=== PATIENT | female | born 1985 | race African-American/Black ===

== ENCOUNTER 2020-10-23 00:21 | Inpatient (IN) | payer OTHER ==
[~2020-10-23] VITALS: Ht 149.9 cm; Wt 75.0 kg
[~2020-10-23 00:21] MED LIST: ACET250T3 PO; ALBU18HF2 IH; ASPI-1153 PO; BACL-141 PO; BUPR150T9 PO; CYAN100081 PO; CYCL10TA7; DIVA-73 PO; DOCU-138 PO; DOCU240C PO; FERR-63 PO; GABA-532 PO; HYDR-459 PO; IBUP-2030 PO; LORA-250 PO; MECL-184 PO; METO-293 PO; METO25TA6 PO; ONDA4TAB51 PO; OXYB5TAB16 PO; RISP0.5T65 PO; SENN8.6T21 PO; SUCR1TAB PO; TOPI50TA; TRAM100T34 PO
[2020-10-23] MEDS ORDERED: DIPHENHYDRAMINE 12.5MG/5ML UDC PO ONE (01:00)
[2020-10-23 01:03] LABS: BASOPHILS % 0.5 % (0.0-2.0); EOSINOPHILS % 0.8 % (0.0-5.0); HEMATOCRIT. 37.4 % (36.0-48.0); HEMOGLOBIN. 12.5 g/dL (12.0-16.0); LYMPHOCYTES % 45.7 % (20.0-50.0); MEAN CORPUSCULAR VOLUME 89.6 fL (81.0-99.0); MEAN PLATELET VOLUME 9.2 fl (7.4-10.4); MONOCYTES % 9.2 % (2.0-8.0); NEUTROPHILS % 43.8 % (40.0-76.0); PLATELET 211 x1000/uL (130-400); RED BLOOD CELL COUNT 4.17 mill/uL (4.2-5.4); RED CELL DISTRIBUTION WIDTH 13.9 % (11.6-14.6)
[2020-10-23 01:09] LABS: CHLORIDE 109 mEq/L (98-107)
[2020-10-23 01:14] LABS: ETHANOL BLOOD < 10 mg/dL
[2020-10-23] MEDS: RISPERIDONE 1MG TABLET PO SCH ×2 (04:50→09:46)
[2020-10-23 05:31] LABS: CLARITY URINE CLEAR (CLEAR); COLOR URINE YELLOW (YELLOW); KETONES URINE NEGATIVE (NEGATIVE); LEUKOCYTE ESTERASE URINE 2+ (NEGATIVE); NITRITE URINE NEGATIVE (NEGATIVE); OCCULT BLOOD URINE NEGATIVE (NEGATIVE); PROTEIN URINE NEGATIVE (NEGATIVE); SPECIFIC GRAVITY URINE 1.018 (1.005-1.030)
[2020-10-23 05:40] LABS: *AMPHETAMINES SCREEN URINE NEGATIVE (NEGATIVE); *BARBITURATES SCREEN URINE NEGATIVE (NEGATIVE); CANNABINOID URINE SCREEN NEGATIVE (NEGATIVE); PHENCYCLIDINE URINE SCREEN NEGATIVE (NEGATIVE)
[2020-10-23 05:41] LABS: *BENZODIAZEPINES SCREEN URINE NEGATIVE (NEGATIVE); *COCAINE SCREEN URINE NEGATIVE (NEGATIVE); METHADONE URINE SCREEN NEGATIVE (NEGATIVE); OPIATES URINE SCREEN NEGATIVE (NEGATIVE)
[2020-10-23] MEDS ORDERED: CYCLOBENZAPRINE 10MG TABLET PO ONE (21:30)
[2020-10-23] MEDS: GABAPENTIN 300MG CAPSULE PO SCH (21:49)
[2020-10-24] MEDS: GABAPENTIN 300MG CAPSULE PO SCH ×3 (06:06→21:45)
[2020-10-24] MEDS: OXCARBAZEPINE 300MG TABLET PO SCH (09:15)
[2020-10-24] MEDS: RISPERIDONE 1MG TABLET PO SCH (09:20)
[2020-10-24] MEDS: ATORVASTATIN CALCIUM 40MG TABLET PO SCH (21:45)
[2020-10-24] MEDS: TRAZODONE HCL 50MG TABLET PO SCH (21:45)
[2020-10-25] MEDS: GABAPENTIN 300MG CAPSULE PO SCH ×3 (06:18→22:18)
[2020-10-25] MEDS: RISPERIDONE 1MG TABLET PO SCH (08:17)
[2020-10-25] MEDS: OXCARBAZEPINE 300MG TABLET PO SCH (08:17)
[2020-10-25] MEDS ORDERED: ACETAMINOPHEN 325MG TABLET PO STA (11:10)
[2020-10-25] MEDS ORDERED: NITR-87 MT (16:40)
[2020-10-25] MEDS: TRAZODONE HCL 50MG TABLET PO SCH (22:18)
[2020-10-25] MEDS: ATORVASTATIN CALCIUM 40MG TABLET PO SCH (22:18)
[2020-10-26] MEDS: GABAPENTIN 300MG CAPSULE PO SCH ×3 (06:00→21:17)
[2020-10-26] MEDS: OXCARBAZEPINE 300MG TABLET PO SCH (08:00)
[2020-10-26] MEDS: RISPERIDONE 1MG TABLET PO SCH (09:00)
[2020-10-26] MEDS ORDERED: ACETAMINOPHEN 325MG TABLET PO NR (11:15)
[2020-10-26] MEDS ORDERED: DIPHENHYDRAMINE 25MG CAPSULE PO ONE (16:15)
[2020-10-26] MEDS: TRAZODONE HCL 50MG TABLET PO SCH (21:47)
[2020-10-26] MEDS: ATORVASTATIN CALCIUM 40MG TABLET PO SCH (21:47)
[2020-10-27] MEDS ORDERED: DIPHENHYDRAMINE 25MG CAPSULE PO ONE (04:00)
[2020-10-27] MEDS: GABAPENTIN 300MG CAPSULE PO SCH ×2 (07:57→14:00)
[2020-10-27] MEDS: RISPERIDONE 1MG TABLET PO SCH (09:00)
[2020-10-27] MEDS: OXCARBAZEPINE 300MG TABLET PO SCH (09:00)
[2020-10-27] MEDS ORDERED: ONDANSETRON HCL 4MG/2ML INJ IV PRN (15:00)
[2020-10-27] MEDS ORDERED: ACETAMINOPHEN 325MG TABLET PO PRN (15:00)
[2020-10-27] MEDS ORDERED: AZITHROMYCIN 500 MG TABLET PO NR (15:00)
[2020-10-27] MEDS ORDERED: CEFTRIAXONE 1 G PREMIX 50 ML IV SCH (15:00)
[2020-10-27 16:44] VITALS: BP 126/92
[2020-10-27] MEDS ORDERED: DIPHENHYDRAMINE 25MG CAPSULE PO PRN (17:30)
[2020-10-27] MEDS ORDERED: IBUPROFEN 800MG TABLET PO SCH (18:00)
[2020-10-27] MEDS ORDERED: MECLIZINE 12.5MG TABLET PO SCH (18:00)
[2020-10-27] MEDS ORDERED: IBUPROFEN 800MG TABLET PO PRN (19:15)
[2020-10-27] MEDS ORDERED: MECLIZINE 25MG TABLET PO PRN (19:15)
[2020-10-27] MEDS: DIPHENHYDRAMINE 25MG CAPSULE PO PRN (19:52)
[2020-10-27 20:00] VITALS: BP 123/83
[2020-10-27] MEDS: DIVALPROEX SODIUM 500MG ER TABLET PO SCH (20:44)
[2020-10-27] MEDS: ENOXAPARIN 40MG/0.4ML SYR SUBCUT SCH (20:44)
[2020-10-27] MEDS: PHENYTOIN SODIUM EXTENDED 100MG CAPSULE PO SCH (20:45)
[2020-10-27] MEDS: RISPERIDONE 0.5MG TABLET PO SCH (20:45)
[2020-10-27] MEDS: LEVETIRACETAM 500MG TABLET PO SCH (20:46)
[2020-10-27] MEDS: LORAZEPAM 1MG TABLET PO PRN (21:03)
[2020-10-28] VITALS: BP 120/70
[2020-10-28] MEDS: SODIUM CHLORIDE 0.45% 1,000 ML IV SCH ×2 (03:32→04:27)
[2020-10-28 04:00] VITALS: BP 119/72
[2020-10-28] MEDS: DIVALPROEX SODIUM 500MG ER TABLET PO SCH ×2 (08:58→17:16)
[2020-10-28] MEDS: LEVETIRACETAM 500MG TABLET PO SCH ×2 (08:58→20:55)
[2020-10-28] MEDS: OXCARBAZEPINE 300MG TABLET PO SCH (08:59)
[2020-10-28] MEDS: LORAZEPAM 1MG TABLET PO PRN (08:59)
[2020-10-28] MEDS: FERROUS SULFATE 325MG TABLET PO SCH ×2 (08:59→17:16)
[2020-10-28] MEDS: CYCLOBENZAPRINE 10MG TABLET PO PRN ×2 (08:59→17:16)
[2020-10-28] MEDS: RISPERIDONE 0.5MG TABLET PO SCH ×2 (09:00→17:16)
[2020-10-28] MEDS: AZITHROMYCIN 250 MG TABLET PO SCH (09:00)
[2020-10-28] MEDS: ACETAZOLAMIDE 250MG TABLET PO SCH ×3 (09:00→17:16)
[2020-10-28] MEDS ORDERED: CYCLOBENZAPRINE 10MG TABLET PO SCH (09:00)
[2020-10-28] MEDS: GABAPENTIN 300MG CAPSULE PO SCH ×3 (09:02→17:20)
[2020-10-28] MEDS: DIPHENHYDRAMINE 25MG CAPSULE PO PRN ×2 (09:03→15:21)
[2020-10-28 12:00] VITALS: BP 98/69
[2020-10-28 16:00] VITALS: BP 108/60
[2020-10-28] MEDS: CEFTRIAXONE 1,000 MG in DEXTROSE 5% WATER 50 ML IV SCH ×2 (17:17→17:21)
[2020-10-28] MEDS: HYDROXYZINE 25MG TABLET PO PRN (17:17)
[2020-10-28 20:00] VITALS: BP 120/80
[2020-10-28] MEDS: PHENYTOIN SODIUM EXTENDED 100MG CAPSULE PO SCH (20:54)
[2020-10-28] MEDS: ENOXAPARIN 40MG/0.4ML SYR SUBCUT SCH (20:55)
[2020-10-29] VITALS: BP 123/71
[2020-10-29] MEDS: HYDROXYZINE 25MG TABLET PO PRN ×3 (00:38→20:57)
[2020-10-29] MEDS: LORAZEPAM 1MG TABLET PO PRN ×2 (00:54→12:04)
[2020-10-29] MEDS: SODIUM CHLORIDE 0.45% 1,000 ML IV SCH ×3 (05:27→20:58)
[2020-10-29 08:00] VITALS: BP 110/68
[2020-10-29] MEDS: AZITHROMYCIN 250 MG TABLET PO SCH (08:10)
[2020-10-29] MEDS: FERROUS SULFATE 325MG TABLET PO SCH ×2 (08:10→17:30)
[2020-10-29] MEDS: OXCARBAZEPINE 300MG TABLET PO SCH (08:10)
[2020-10-29] MEDS: ACETAZOLAMIDE 250MG TABLET PO SCH ×3 (08:10→17:30)
[2020-10-29] MEDS: GABAPENTIN 300MG CAPSULE PO SCH ×3 (08:10→17:30)
[2020-10-29] MEDS: RISPERIDONE 0.5MG TABLET PO SCH ×2 (08:10→17:30)
[2020-10-29] MEDS: LEVETIRACETAM 500MG TABLET PO SCH ×2 (08:10→20:57)
[2020-10-29] MEDS: DIVALPROEX SODIUM 500MG ER TABLET PO SCH ×2 (08:10→17:31)
[2020-10-29 12:00] VITALS: BP 122/82
[2020-10-29 16:00] VITALS: BP 100/55
[2020-10-29] MEDS: CEFTRIAXONE 1,000 MG in DEXTROSE 5% WATER 50 ML IV SCH (17:30)
[2020-10-29 20:36] VITALS: BP 123/77
[2020-10-29] MEDS: ENOXAPARIN 40MG/0.4ML SYR SUBCUT SCH (20:57)
[2020-10-29] MEDS: PHENYTOIN SODIUM EXTENDED 100MG CAPSULE PO SCH (20:57)
[2020-10-30] VITALS: BP 118/75
[2020-10-30 04:00] VITALS: BP 125/80
[2020-10-30 08:00] VITALS: BP 106/62
[2020-10-30] MEDS: OXCARBAZEPINE 300MG TABLET PO SCH (08:09)
[2020-10-30] MEDS: FERROUS SULFATE 325MG TABLET PO SCH (08:09)
[2020-10-30] MEDS: RISPERIDONE 0.5MG TABLET PO SCH (08:09)
[2020-10-30] MEDS: ACETAZOLAMIDE 250MG TABLET PO SCH ×2 (08:09→12:12)
[2020-10-30] MEDS: DIVALPROEX SODIUM 500MG ER TABLET PO SCH (08:09)
[2020-10-30] MEDS: LEVETIRACETAM 500MG TABLET PO SCH (08:09)
[2020-10-30] MEDS: AZITHROMYCIN 250 MG TABLET PO SCH (08:09)
[2020-10-30] MEDS: SODIUM CHLORIDE 0.45% 1,000 ML IV SCH (08:10)
[2020-10-30] MEDS: GABAPENTIN 300MG CAPSULE PO SCH ×2 (08:11→12:12)
[2020-10-30 12:00] VITALS: BP 110/67
[2020-10-30] MEDS: LORAZEPAM 1MG TABLET PO PRN (12:12)
[2020-10-30 12:49] VITALS: BP 110/67
== END 2020-10-30 15:07 | DRG 720 ==
LOC: ER 00:21 → EDUNIT# 00:21 → EDBD 00:21 → UNDOADMIN 10-26 00:20 → MICUSO 10-26 00:20 → EDBEDREQTM 10-27 12:40 → EDBEDREQ 10-27 12:40 → ENRESERV 10-27 13:48 → 7WST 10-27 16:18
PROVIDERS: ADMIT Internal Medicine; ATTEND Internal Medicine
DX: A41.9 Sepsis, unspecified organism (principal); U07.1 COVID-19; E44.0 Moderate protein-calorie malnutrition; E87.8 Other disorders of electrolyte and fluid balance, not elsewhere classified; F20.9 Schizophrenia, unspecified; F31.9 Bipolar disorder, unspecified; G40.909 Epilepsy, unspecified, not intractable, without status epilepticus; N39.0 Urinary tract infection, site not specified; R45.851 Suicidal ideations; Z88.5 Allergy status to narcotic agent; Z88.0 Allergy status to penicillin; Z88.2 Allergy status to sulfonamides; Z88.8 Allergy status to other drugs, medicaments and biological substances; Z88.1 Allergy status to other antibiotic agents; Z91.040 Latex allergy status; Z79.1 Long term (current) use of non-steroidal anti-inflammatories (NSAID); Z79.82 Long term (current) use of aspirin; Z79.899 Other long term (current) drug therapy; Z68.33 Body mass index [BMI] 33.0-33.9, adult; R62.50 Unspecified lack of expected normal physiological development in childhood
CPT/HCPCS: 36415; 71045; 80053; 80305; 80307; 80320; 80329; 81003; 81025; 85025; 87077; 93005; 99285; C9803; J0696; J1650; J2405; J7060; Q0163; U0003; G0480

== ENCOUNTER 2020-12-19 11:26 | Inpatient (IN) | payer MEDICAID, OTHER ==
[~2020-12-19] VITALS: Ht 149.9 cm; Wt 80.3 kg
[~2020-12-19 11:26] MED LIST changes: -MECL-184 PO; +MECL-217 PO; +NITR-87 MT
[2020-12-19 12:30] LABS: BASOPHILS % 1.1 % (0.0-2.0); EOSINOPHILS % 2.3 % (0.0-5.0); HEMATOCRIT. 42.8 % (36.0-48.0); HEMOGLOBIN. 14.1 g/dL (12.0-16.0); LYMPHOCYTES % 40.9 % (20.0-50.0); MEAN CORPUSCULAR HEMOGLOBIN 30.9 pg (28.0-32.0); MEAN CORPUSCULAR VOLUME 93.6 fL (81.0-99.0); MEAN PLATELET VOLUME 9.5 fl (7.4-10.4); MONOCYTES % 12.2 % (2.0-8.0); NEUTROPHILS % 43.5 % (40.0-76.0); PLATELET 178 x1000/uL (130-400); RED BLOOD CELL COUNT 4.57 mill/uL (4.2-5.4); RED CELL DISTRIBUTION WIDTH 13.7 % (11.6-14.6)
[2020-12-19 12:36] LABS: CHLORIDE 112 mEq/L (98-107)
[2020-12-19 12:59] LABS: HCG SCREEN NEGATIVE
[2020-12-19] MEDS ORDERED: METOCLOPRAMIDE HCL 10MG/2ML VIAL IV ONE (13:00)
[2020-12-19] MEDS ORDERED: ACETAMINOPHEN 650MG/20.3ML UDC PO NR (13:00)
[2020-12-19] MEDS ORDERED: METOCLOPRAMIDE HCL 10 MG in SODIUM CHLORIDE 0.9% 100 ML IV SCH (13:15)
[2020-12-19 13:57] LABS: CLARITY URINE TURBID (CLEAR); COLOR URINE YELLOW (YELLOW); KETONES URINE NEGATIVE (NEGATIVE); LEUKOCYTE ESTERASE URINE 3+ (NEGATIVE); NITRITE URINE NEGATIVE (NEGATIVE); OCCULT BLOOD URINE 2+ (NEGATIVE); PH URINE 8.5 (4.5-8.0); PROTEIN URINE 1+ (NEGATIVE); SPECIFIC GRAVITY URINE 1.013 (1.005-1.030)
[2020-12-19] MEDS ORDERED: NITR-87 MT (14:11)
[2020-12-19] MEDS ORDERED: MORPHINE SULFATE 4 MG/ML CPJ (NOT FOR IM USE) IV ONE ×2 (14:15→20:00)
[2020-12-19] MEDS ORDERED: NITROFURANTOIN 100MG M/M CAPSULE PO ONE (14:15)
[2020-12-19] MEDS ORDERED: DIPHENHYDRAMINE 25MG CAPSULE PO NR (20:15)
[2020-12-19] MEDS ORDERED: LEVETIRACETAM 500MG TABLET PO NR (21:00)
[2020-12-19] MEDS ORDERED: DIVALPROEX SODIUM 500MG DR TABLET PO NR (21:15)
[2020-12-20 01:10] VITALS: BP 113/69
[2020-12-20 01:25] VITALS: BP 113/69
[2020-12-20] MEDS ORDERED: MECLIZINE 25MG TABLET PO PRN (02:45)
[2020-12-20] MEDS ORDERED: DIPHENHYDRAMINE 50MG CAPSULE PO PRN (02:45)
[2020-12-20] MEDS: MORPHINE SULFATE 2 MG/ML CPJ (NOT FOR IM USE) IV PRN ×2 (03:03→08:37)
[2020-12-20] MEDS ORDERED: PHEN100C4 PO (03:53)
[2020-12-20] MEDS ORDERED: DIVA-75 PO (04:01)
[2020-12-20] MEDS ORDERED: FERR325T6 PO (04:01)
[2020-12-20] MEDS ORDERED: LEVE10006 PO (04:01)
[2020-12-20] MEDS ORDERED: OXCA300T4 PO (04:01)
[2020-12-20] MEDS ORDERED: LIDO700A30 TP (04:09)
[2020-12-20] MEDS ORDERED: ASCO-339 MT (04:09)
[2020-12-20 08:00] VITALS: BP_SYST 107; BP_SYST 86; BP_DIAS 57; BP_DIAS 67
[2020-12-20 08:02] LABS: BASOPHILS % 0.5 % (0.0-2.0); EOSINOPHILS % 4.1 % (0.0-5.0); HEMATOCRIT. 38.6 % (36.0-48.0); HEMOGLOBIN. 12.7 g/dL (12.0-16.0); LYMPHOCYTES % 57.9 % (20.0-50.0); MEAN CORPUSCULAR HEMOGLOBIN 31.1 pg (28.0-32.0); MEAN CORPUSCULAR VOLUME 94.6 fL (81.0-99.0); MEAN PLATELET VOLUME 9.7 fl (7.4-10.4); NEUTROPHILS % 26.5 % (40.0-76.0); PLATELET 152 x1000/uL (130-400); RED BLOOD CELL COUNT 4.08 mill/uL (4.2-5.4); RED CELL DISTRIBUTION WIDTH 13.8 % (11.6-14.6)
[2020-12-20 08:26] LABS: CHLORIDE 114 mEq/L (98-107)
[2020-12-20] MEDS: LEVETIRACETAM 500MG/5ML CUP PO SCH ×2 (08:34→21:18)
[2020-12-20] MEDS: DIVALPROEX SODIUM 500MG DR TABLET PO SCH ×2 (08:35→17:33)
[2020-12-20] MEDS: OXCARBAZEPINE 300MG TABLET PO SCH (08:35)
[2020-12-20] MEDS: ACETAZOLAMIDE 250MG TABLET PO SCH ×3 (08:35→17:32)
[2020-12-20 08:36] LABS: LDL CHOLESTEROL 85 mg/dL (5-100)
[2020-12-20] MEDS: FERROUS SULFATE 325MG TABLET PO SCH ×2 (08:36→17:32)
[2020-12-20] MEDS: GABAPENTIN 300MG CAPSULE PO SCH ×4 (08:36→21:19)
[2020-12-20] MEDS: RISPERIDONE 0.5MG TABLET PO SCH ×2 (08:36→17:32)
[2020-12-20 08:38] LABS: HDL CHOLESTEROL 83 mg/dL (40-59)
[2020-12-20 12:00] VITALS: BP 116/69
[2020-12-20] MEDS: CEFTRIAXONE 1,000 MG in DEXTROSE 5% WATER 50 ML IV SCH (14:52)
[2020-12-20] MEDS ORDERED: ONDANSETRON HCL 4MG/2ML INJ IV PRN (15:30)
[2020-12-20 16:00] VITALS: BP 103/63
[2020-12-20] MEDS: LORAZEPAM 2MG/ML CPJ IV PRN ×2 (16:00→23:40)
[2020-12-20 20:00] VITALS: BP 98/59
[2020-12-20] MEDS: PHENYTOIN SODIUM EXTENDED 100MG CAPSULE PO SCH (21:19)
[2020-12-21] VITALS: BP 92/56
[2020-12-21 04:00] VITALS: BP 96/68
[2020-12-21 08:00] VITALS: BP 114/73
[2020-12-21] MEDS: LEVETIRACETAM 500MG/5ML CUP PO SCH ×2 (09:52→20:48)
[2020-12-21] MEDS: RISPERIDONE 0.5MG TABLET PO SCH ×2 (09:52→16:07)
[2020-12-21] MEDS: GABAPENTIN 300MG CAPSULE PO SCH ×4 (09:52→20:48)
[2020-12-21] MEDS: FERROUS SULFATE 325MG TABLET PO SCH ×2 (09:52→16:05)
[2020-12-21] MEDS: ACETAZOLAMIDE 250MG TABLET PO SCH ×3 (09:52→16:04)
[2020-12-21] MEDS: OXCARBAZEPINE 300MG TABLET PO SCH (09:52)
[2020-12-21] MEDS: DIVALPROEX SODIUM 500MG DR TABLET PO SCH ×2 (09:52→16:05)
[2020-12-21 12:00] VITALS: BP 111/60
[2020-12-21] MEDS: CEFTRIAXONE 1,000 MG in DEXTROSE 5% WATER 50 ML IV SCH (13:01)
[2020-12-21] MEDS: ACETAMINOPHEN 325MG TABLET PO PRN ×2 (13:02→20:47)
[2020-12-21 16:00] VITALS: BP 103/64
[2020-12-21 20:00] VITALS: BP 106/56
[2020-12-21] MEDS: PHENYTOIN SODIUM EXTENDED 100MG CAPSULE PO SCH (20:48)
[2020-12-22] VITALS (7 sets, daily range): BP systolic 96–121; BP diastolic 61–77
[2020-12-22] MEDS: TRAMADOL 50MG TABLET PO PRN ×2 (03:56→18:00)
[2020-12-22] MEDS: DIVALPROEX SODIUM 500MG DR TABLET PO SCH ×2 (08:50→16:41)
[2020-12-22] MEDS: OXCARBAZEPINE 300MG TABLET PO SCH (08:50)
[2020-12-22] MEDS: GABAPENTIN 300MG CAPSULE PO SCH ×4 (08:50→21:31)
[2020-12-22] MEDS: RISPERIDONE 0.5MG TABLET PO SCH ×2 (08:50→16:41)
[2020-12-22] MEDS: FERROUS SULFATE 325MG TABLET PO SCH ×2 (08:50→16:41)
[2020-12-22] MEDS: LEVETIRACETAM 500MG/5ML CUP PO SCH ×2 (08:50→21:30)
[2020-12-22] MEDS: ACETAZOLAMIDE 250MG TABLET PO SCH ×3 (08:50→16:41)
[2020-12-22] MEDS: ACETAMINOPHEN 325MG TABLET PO PRN (08:51)
[2020-12-22] MEDS: CEFTRIAXONE 1,000 MG in DEXTROSE 5% WATER 50 ML IV SCH (16:41)
[2020-12-22] MEDS ORDERED: DIPHENHYDRAMINE 50MG/ML VIAL IV SCH (21:00)
[2020-12-22] MEDS ORDERED: DIPHENHYDRAMINE 50MG CAPSULE PO PRN (21:00)
[2020-12-22] MEDS: PHENYTOIN SODIUM EXTENDED 100MG CAPSULE PO SCH (21:31)
[2020-12-23 04:00] VITALS: BP 130/79
[2020-12-23 08:00] VITALS: BP 100/54
[2020-12-23] MEDS: LEVETIRACETAM 500MG/5ML CUP PO SCH (08:47)
[2020-12-23] MEDS: ACETAZOLAMIDE 250MG TABLET PO SCH ×3 (08:48→19:04)
[2020-12-23] MEDS: DIVALPROEX SODIUM 500MG DR TABLET PO SCH ×2 (08:48→19:04)
[2020-12-23] MEDS: GABAPENTIN 300MG CAPSULE PO SCH ×3 (08:48→19:04)
[2020-12-23] MEDS: OXCARBAZEPINE 300MG TABLET PO SCH (08:48)
[2020-12-23] MEDS: FERROUS SULFATE 325MG TABLET PO SCH ×2 (08:48→19:04)
[2020-12-23] MEDS: RISPERIDONE 0.5MG TABLET PO SCH ×2 (08:48→19:04)
[2020-12-23 12:00] VITALS: BP 96/64
[2020-12-23] MEDS: CEFTRIAXONE 1,000 MG in DEXTROSE 5% WATER 50 ML IV SCH (13:46)
[2020-12-23] MEDS: ACETAMINOPHEN 325MG TABLET PO PRN (13:46)
[2020-12-23 16:00] VITALS: BP 92/57
== END 2020-12-23 19:10 | DRG 463 ==
LOC: ER 11:31 → 5WST 23:52 → ENRESERV 12-20 00:10 → 6EST 12-21 22:33
PROVIDERS: ADMIT Internal Medicine; ATTEND Internal Medicine
DX: N39.0 Urinary tract infection, site not specified (principal); G82.20 Paraplegia, unspecified; R62.50 Unspecified lack of expected normal physiological development in childhood; I10 Essential (primary) hypertension; Z98.2 Presence of cerebrospinal fluid drainage device; Q05.9 Spina bifida, unspecified; Z99.3 Dependence on wheelchair; Z88.0 Allergy status to penicillin; Z88.2 Allergy status to sulfonamides; Z88.8 Allergy status to other drugs, medicaments and biological substances; Z88.1 Allergy status to other antibiotic agents; Z91.040 Latex allergy status
CPT/HCPCS: 36415; 71045; 80048; 80061; 81003; 84443; 84484; 84703; 85025; 85651; 99285; J0696; J1200; J2060; J2270; J2405; J2765; J7040; J7050; J7060; Q0163; A4315

== ENCOUNTER 2021-01-07 16:41 | Emergency (ER) | payer MEDICAID ==
[~2021-01-07] VITALS: Ht 167.6 cm; Wt 100.0 kg
[~2021-01-07 16:41] MED LIST changes: +ASCO-339 MT; -DIVA-73 PO; +DIVA-75 PO; -DOCU240C PO; -FERR-63 PO; +FERR325T6 PO; -HYDR-459 PO; -IBUP-2030 PO; +LEVE10006 PO; +LIDO700A30 TP; -METO-293 PO; -METO25TA6 PO; -NITR-87 MT; -ONDA4TAB51 PO; +OXCA300T4 PO; -OXYB5TAB16 PO; +PHEN100C4 PO; -SENN8.6T21 PO; -SUCR1TAB PO
[2021-01-07] MEDS ORDERED: ONDANSETRON HCL 4MG/2ML INJ IV STA (17:28)
[2021-01-07] MEDS ORDERED: MORPHINE SULFATE 4 MG/ML CPJ (NOT FOR IM USE) IV STA (17:28)
[2021-01-07] MEDS ORDERED: SODIUM CHLORIDE 0.9% 1,000 ML IV ONE (17:30)
[2021-01-07] MEDS ORDERED: DIPHENHYDRAMINE 50MG/ML VIAL IV ONE (19:00)
[2021-01-07 19:16] LABS: BASOPHILS % 0.6 % (0.0-2.0); EOSINOPHILS % 2.2 % (0.0-5.0); HEMOGLOBIN. 12.8 g/dL (12.0-16.0); LYMPHOCYTES % 54.3 % (20.0-50.0); MEAN CORPUSCULAR HEMOGLOBIN 31.5 pg (28.0-32.0); MEAN CORPUSCULAR VOLUME 93.2 fL (81.0-99.0); MEAN PLATELET VOLUME 9.8 fl (7.4-10.4); MONOCYTES % 6.7 % (2.0-8.0); NEUTROPHILS % 36.2 % (40.0-76.0); PLATELET 177 x1000/uL (130-400); RED BLOOD CELL COUNT 4.08 mill/uL (4.2-5.4); RED CELL DISTRIBUTION WIDTH 13.1 % (11.6-14.6)
[2021-01-07 19:18] LABS: HCG SCREEN NEGATIVE
[2021-01-07 19:19] LABS: CHLORIDE 118 mEq/L (98-107)
[2021-01-07] MEDS ORDERED: TOPUD MT (20:08)
[2021-01-07 21:47] VITALS: BP 118/75
== END 2021-01-07 21:48 | disposition home or self-care (01) ==
LOC: ER 16:41
DX: R51.9 Headache, unspecified (principal); M79.662 Pain in left lower leg; M79.661 Pain in right lower leg; Q05.9 Spina bifida, unspecified; F20.9 Schizophrenia, unspecified; G91.9 Hydrocephalus, unspecified; Z98.2 Presence of cerebrospinal fluid drainage device
CPT/HCPCS: 36415; 70450; 71045; 74018; 80053; 84703; 85025; 93005; 93970; 96361; 96374; 96375; 99285; J1200; J2270; J2405; J7030

== ENCOUNTER 2022-03-21 17:53 | Emergency (ER) | payer MEDICAID ==
[~2022-03-21] VITALS: Ht 162.6 cm; Wt 75.0 kg
[~2022-03-21 17:53] MED LIST changes: +BUPR-114 PO; -BUPR150T9 PO; +CYCL10TA21; -CYCL10TA7; +TOPUD MT
[2022-03-21] MEDS ORDERED: SODIUM CHLORIDE 0.9% 1,000 ML IV ONE (19:30)
[2022-03-21 20:07] LABS: BASOPHILS % 0.4 % (0.0-2.0); HEMATOCRIT. 42.3 % (36.0-48.0); HEMOGLOBIN. 13.8 g/dL (12.0-16.0); LYMPHOCYTES % 57.2 % (20.0-50.0); MEAN CORPUSCULAR HEMOGLOBIN 29.6 pg (28.0-32.0); MEAN CORPUSCULAR VOLUME 90.6 fL (81.0-99.0); MEAN PLATELET VOLUME 10.5 fl (7.4-10.4); MONOCYTES % 8.4 % (2.0-8.0); PLATELET 246 x1000/uL (130-400); RED BLOOD CELL COUNT 4.67 mill/uL (4.2-5.4); RED CELL DISTRIBUTION WIDTH 13.3 % (11.6-14.6)
[2022-03-21 20:13] LABS: CHLORIDE 110 mEq/L (98-107)
[2022-03-21 20:23] LABS: HCG SCREEN NEGATIVE
[2022-03-21] MEDS ORDERED: DIPHENHYDRAMINE 50MG/ML VIAL IV ONE (23:30)
[2022-03-21] MEDS ORDERED: IOHEXOL-350 100 ML BOTTLE ONE (23:32)
[2022-03-22] MEDS ORDERED: HYDROCODONE/ACETAMINOPHEN 5/325MG TABLET PO ONE (01:15)
[2022-03-22 07:54] VITALS: BP 159/85
== END 2022-03-22 07:54 | disposition home or self-care (01) ==
LOC: ER 17:53
DX: R07.89 Other chest pain (principal); M32.9 Systemic lupus erythematosus, unspecified; R00.0 Tachycardia, unspecified; Z88.0 Allergy status to penicillin; Z88.2 Allergy status to sulfonamides; Z88.5 Allergy status to narcotic agent; Z88.8 Allergy status to other drugs, medicaments and biological substances; Z91.040 Latex allergy status; Z79.899 Other long term (current) drug therapy
CPT/HCPCS: 36415; 71045; 71275; 80053; 83880; 84484; 84703; 85025; 85379; 96361; 96374; 99285; J1200; J7030; Q9967

== ENCOUNTER 2022-04-01 21:22 | Emergency (ER) | payer MEDICAID ==
[~2022-04-01] VITALS: Ht 160 cm; Wt 79.0 kg
[2022-04-01] MEDS ORDERED: NITROGLYCERIN 0.4MG TABLET SL SL PRN (23:15)
[2022-04-01] MEDS ORDERED: ASPIRIN 81MG TABLET PO ONE (23:15)
[2022-04-02 00:33] LABS: BASOPHILS % 0.5 % (0.0-2.0); EOSINOPHILS % 2.3 % (0.0-5.0); HEMATOCRIT. 38.2 % (36.0-48.0); HEMOGLOBIN. 12.3 g/dL (12.0-16.0); LYMPHOCYTES % 57.8 % (20.0-50.0); MEAN CORPUSCULAR HEMOGLOBIN 29.4 pg (28.0-32.0); MEAN CORPUSCULAR VOLUME 91.2 fL (81.0-99.0); NEUTROPHILS % 28.4 % (40.0-76.0); PLATELET 191 x1000/uL (130-400); RED BLOOD CELL COUNT 4.19 mill/uL (4.2-5.4); RED CELL DISTRIBUTION WIDTH 13.3 % (11.6-14.6)
[2022-04-02 00:40] LABS: CHLORIDE 108 mEq/L (98-107)
[2022-04-02 00:51] LABS: ETHANOL BLOOD < 10 mg/dL
[2022-04-02 09:59] VITALS: BP 105/68
== END 2022-04-02 10:01 | disposition home or self-care (01) ==
LOC: ER 21:22
DX: R07.89 Other chest pain (principal); F41.9 Anxiety disorder, unspecified; J45.909 Unspecified asthma, uncomplicated; Z20.822 Contact with and (suspected) exposure to COVID-19; Z88.0 Allergy status to penicillin; Z88.6 Allergy status to analgesic agent; Z88.2 Allergy status to sulfonamides; Z91.040 Latex allergy status; Z88.5 Allergy status to narcotic agent; Z79.899 Other long term (current) drug therapy; Z86.59 Personal history of other mental and behavioral disorders; Z86.73 Personal history of transient ischemic attack (TIA), and cerebral infarction without residual deficits
CPT/HCPCS: 36415; 71045; 80053; 80320; 83880; 84484; 85025; 87426; 87804; 93005; 99285; C9803; Z7610; G0480

== ENCOUNTER 2022-07-11 21:56 | Inpatient (IN) | payer MEDICAID ==
[~2022-07-11] VITALS: Ht 149.9 cm; Wt 99.3 kg
[~2022-07-11 21:56] MED LIST changes: -ACET250T3 PO; -ASCO-339 MT; -ASPI-1153 PO; -BACL-141 PO; -BUPR-114 PO; -CYAN100081 PO; -CYCL10TA21; -LEVE10006 PO; -LORA-250 PO; -MECL-217 PO; -OXCA300T4 PO; -RISP0.5T65 PO; -TOPI50TA; -TRAM100T34 PO
[2022-07-12 00:44] LABS: CHLORIDE 107 mEq/L (98-107)
[2022-07-12] MEDS ORDERED: VISCOUS LIDOCAINE 2% 15 ML UDC MM STA (00:57)
[2022-07-12] MEDS ORDERED: MAGNESIUM/ALUMINUM HYDROXIDE/SIMETHICONE 30ML UDC PO ONE (01:00)
[2022-07-12] MEDS ORDERED: FAMOTIDINE 20MG TABLET PO ONE (01:00)
[2022-07-12] MEDS ORDERED: ACETAMINOPHEN 325MG TABLET PO ONE (01:00)
[2022-07-12 01:39] LABS: BASOPHILS % 0.1 % (0.0-2.0); EOSINOPHILS % 1.7 % (0.0-5.0); HEMATOCRIT. 38.8 % (36.0-48.0); HEMOGLOBIN. 12.8 g/dL (12.0-16.0); LYMPHOCYTES % 20.5 % (20.0-50.0); MEAN CORPUSCULAR HEMOGLOBIN 30.4 pg (28.0-32.0); MEAN CORPUSCULAR VOLUME 92.5 fL (81.0-99.0); MONOCYTES % 12.1 % (2.0-8.0); NEUTROPHILS % 65.6 % (40.0-76.0); PLATELET 142 x1000/uL (130-400); RED BLOOD CELL COUNT 4.19 mill/uL (4.2-5.4); RED CELL DISTRIBUTION WIDTH 15.3 % (11.6-14.6)
[2022-07-12] MEDS ORDERED: CEFTRIAXONE 1 G PREMIX 50 ML IV ONE (03:15)
[2022-07-12] MEDS ORDERED: SODIUM CHLORIDE 0.9% 1,000 ML IV ONE (03:15)
[2022-07-12] MEDS ORDERED: CEFTRIAXONE 1 G PREMIX 50 ML IV NR (03:30)
[2022-07-12] MEDS ORDERED: IOHEXOL-350 100 ML BOTTLE ONE (05:51)
[2022-07-12 08:50] VITALS: BP 114/69
[2022-07-12] MEDS ORDERED: ONDANSETRON HCL 4MG/2ML INJ IV PRN (09:45)
[2022-07-12] MEDS ORDERED: IPRATROPIUM/ALBUTEROL 0.5-3(2.5)MG/3ML NEB HHN PRN (09:45)
[2022-07-12] MEDS ORDERED: ACETAMINOPHEN 325MG TABLET PO PRN (09:45)
[2022-07-12] MEDS ORDERED: CLONIDINE 0.1MG TABLET PO PRN (09:45)
[2022-07-12] MEDS ORDERED: NALOXONE HCL 0.4MG/ML VIAL IV PRN (10:00)
[2022-07-12] MEDS ORDERED: AZITHROMYCIN 500 MG in DEXT 5% WATER 250 ML IV SCH (11:00)
[2022-07-12 11:10] VITALS: BP 114/69
[2022-07-12 12:00] VITALS: BP 116/77
[2022-07-12] MEDS: SODIUM CHLORIDE 0.9% 1,000 ML IV SCH (12:22)
[2022-07-12] MEDS: DIPHENHYDRAMINE 50MG/ML VIAL IV PRN ×3 (12:23→21:34)
[2022-07-12] MEDS ORDERED: LORAZEPAM 2MG/ML CPJ IV PRN (14:15)
[2022-07-12] MEDS ORDERED: ALBUTEROL 6.7GM HFA INHALER INH PRN (14:15)
[2022-07-12] MEDS ORDERED: ALBUTEROL (0.083%) 2.5MG/3ML NEB HHN PRN (14:30)
[2022-07-12] MEDS ORDERED: AZTREONAM 2 GM in DEXT 5% WATER 100 ML IV SCH (15:00)
[2022-07-12 16:00] VITALS: BP 130/82
[2022-07-12] MEDS: AZTREONAM 2 GM in DEXT 5% WATER 100 ML IV SCH (17:00)
[2022-07-12] MEDS: DIVALPROEX SODIUM 500MG DR TABLET PO SCH (17:00)
[2022-07-12] MEDS: GABAPENTIN 300MG CAPSULE PO SCH (17:00)
[2022-07-12] MEDS ORDERED: VANCOMYCIN 1,750 MG in DEXT 5% WATER 500 ML IV NR (17:30)
[2022-07-12] MEDS ORDERED: INFLUENZA VACCINE 05/PF 0.5 ML SYRINGE IM ONE (18:45)
[2022-07-12 20:00] VITALS: BP 130/82
[2022-07-12] MEDS: PHENYTOIN SODIUM EXTENDED 100MG CAPSULE PO SCH (21:34)
[2022-07-13] MEDS: DIPHENHYDRAMINE 50MG/ML VIAL IV PRN ×5 (01:38→18:51)
[2022-07-13 04:00] VITALS: BP 98/59
[2022-07-13] MEDS: AZTREONAM 2 GM in DEXT 5% WATER 100 ML IV SCH ×2 (05:15→16:19)
[2022-07-13 08:00] VITALS: BP 108/70
[2022-07-13] MEDS ORDERED: VANCOMYCIN 1G PREMIX 200 ML IV SCH (08:00)
[2022-07-13 08:05] LABS: BASOPHILS % 0.1 % (0.0-2.0); EOSINOPHILS % 1.6 % (0.0-5.0); HEMATOCRIT. 42.4 % (36.0-48.0); HEMOGLOBIN. 14.1 g/dL (12.0-16.0); LYMPHOCYTES % 23.7 % (20.0-50.0); MEAN CORPUSCULAR HEMOGLOBIN 30.5 pg (28.0-32.0); MEAN CORPUSCULAR VOLUME 91.5 fL (81.0-99.0); MEAN PLATELET VOLUME 10.7 fl (7.4-10.4); MONOCYTES % 11.7 % (2.0-8.0); NEUTROPHILS % 62.9 % (40.0-76.0); PLATELET 142 x1000/uL (130-400); RED BLOOD CELL COUNT 4.63 mill/uL (4.2-5.4); RED CELL DISTRIBUTION WIDTH 14.8 % (11.6-14.6)
[2022-07-13] MEDS: DIVALPROEX SODIUM 500MG DR TABLET PO SCH ×2 (09:22→16:19)
[2022-07-13] MEDS: GABAPENTIN 300MG CAPSULE PO SCH ×3 (09:22→16:19)
[2022-07-13 09:57] LABS: CHLORIDE 106 mEq/L (98-107)
[2022-07-13 12:00] VITALS: BP 127/80
[2022-07-13] MEDS: SODIUM CHLORIDE 0.9% 1,000 ML IV SCH ×2 (15:45→18:51)
[2022-07-13 16:00] VITALS: BP 136/79
[2022-07-13] MEDS: MORPHINE SULFATE 2 MG/ML CPJ (NOT FOR IM USE) IV PRN ×2 (16:20→21:40)
[2022-07-13 20:00] VITALS: BP 130/86
[2022-07-13] MEDS: PHENYTOIN SODIUM EXTENDED 100MG CAPSULE PO SCH (21:26)
[2022-07-13] MEDS: VANCOMYCIN 1G PREMIX 200 ML IV SCH (21:27)
[2022-07-14] VITALS: BP 127/86
[2022-07-14] MEDS: SODIUM CHLORIDE 0.9% 1,000 ML IV SCH ×3 (01:32→21:45)
[2022-07-14 04:00] VITALS: BP 100/55
[2022-07-14] MEDS: AZTREONAM 2 GM in DEXT 5% WATER 100 ML IV SCH ×2 (04:45→15:42)
[2022-07-14] MEDS: MORPHINE SULFATE 2 MG/ML CPJ (NOT FOR IM USE) IV PRN ×5 (06:53→23:15)
[2022-07-14 08:00] VITALS: BP 99/66
[2022-07-14] MEDS: GABAPENTIN 300MG CAPSULE PO SCH ×3 (08:21→16:27)
[2022-07-14] MEDS: VANCOMYCIN 1G PREMIX 200 ML IV SCH (08:21)
[2022-07-14] MEDS: DIVALPROEX SODIUM 500MG DR TABLET PO SCH ×2 (08:21→16:27)
[2022-07-14 11:49] LABS: HEMATOCRIT. 40.9 % (36.0-48.0); HEMOGLOBIN. 13.6 g/dL (12.0-16.0); MEAN CORPUSCULAR HEMOGLOBIN 30.6 pg (28.0-32.0); MEAN CORPUSCULAR VOLUME 91.8 fL (81.0-99.0); MEAN PLATELET VOLUME 9.7 fl (7.4-10.4); PLATELET 159 x1000/uL (130-400); RED BLOOD CELL COUNT 4.45 mill/uL (4.2-5.4); RED CELL DISTRIBUTION WIDTH 14.6 % (11.6-14.6)
[2022-07-14 12:00] VITALS: BP 120/70
[2022-07-14 15:24] LABS: PLATELET ESTIMATE NORMAL
[2022-07-14 16:00] VITALS: BP 109/76
[2022-07-14 17:07] LABS: CHLORIDE 105 mEq/L (98-107)
[2022-07-14] MEDS: LEVOFLOXACIN 250MG TABLET PO SCH (17:43)
[2022-07-14] MEDS ORDERED: LEVO750T68 MT (17:43)
[2022-07-14 18:00] LABS: CLARITY URINE CLOUDY (CLEAR); COLOR URINE YELLOW (YELLOW); KETONES URINE NEGATIVE (NEGATIVE); LEUKOCYTE ESTERASE URINE 3+ (NEGATIVE); NITRITE URINE NEGATIVE (NEGATIVE); OCCULT BLOOD URINE 2+ (NEGATIVE); PH URINE 6.5 (4.5-8.0); PROTEIN URINE TRACE (NEGATIVE); SPECIFIC GRAVITY URINE 1.012 (1.005-1.030)
[2022-07-14 20:00] VITALS: BP 109/74
[2022-07-14] MEDS: DIPHENHYDRAMINE 50MG/ML VIAL IV PRN (20:54)
[2022-07-14] MEDS: PHENYTOIN SODIUM EXTENDED 100MG CAPSULE PO SCH (21:01)
[2022-07-15] VITALS: BP 117/73
[2022-07-15 04:00] VITALS: BP 109/69
[2022-07-15] MEDS: SODIUM CHLORIDE 0.9% 1,000 ML IV SCH (05:56)
[2022-07-15 08:00] VITALS: BP 110/70
[2022-07-15] MEDS: LEVOFLOXACIN 250MG TABLET PO SCH (10:08)
[2022-07-15] MEDS: GABAPENTIN 300MG CAPSULE PO SCH ×3 (10:09→16:04)
[2022-07-15] MEDS: DIVALPROEX SODIUM 500MG DR TABLET PO SCH ×2 (10:09→16:04)
[2022-07-15 12:00] VITALS: BP 115/80
[2022-07-15 14:29] VITALS: BP 117/71
[2022-07-15 16:00] VITALS: BP 117/71
== END 2022-07-15 18:08 | disposition home or self-care (01) | DRG 720 ==
LOC: ER 21:56 → EDBEDREQTM 07-12 03:08 → EDBEDREQ 07-12 03:08 → 8WST 07-12 08:45
PROVIDERS: ADMIT Internal Medicine; ATTEND Internal Medicine
DX: A41.9 Sepsis, unspecified organism (principal); J18.9 Pneumonia, unspecified organism; I10 Essential (primary) hypertension; F31.9 Bipolar disorder, unspecified; F41.9 Anxiety disorder, unspecified; G89.29 Other chronic pain; J45.909 Unspecified asthma, uncomplicated; Z20.822 Contact with and (suspected) exposure to COVID-19; G40.909 Epilepsy, unspecified, not intractable, without status epilepticus; E66.01 Morbid (severe) obesity due to excess calories; Z68.41 Body mass index [BMI] 40.0-44.9, adult; Z88.0 Allergy status to penicillin; Z88.2 Allergy status to sulfonamides; Q05.9 Spina bifida, unspecified; Z88.1 Allergy status to other antibiotic agents; Z99.3 Dependence on wheelchair; Z88.6 Allergy status to analgesic agent; Z91.040 Latex allergy status; Z79.899 Other long term (current) drug therapy
CPT/HCPCS: 36415; 71045; 71275; 80048; 80053; 80202; 81003; 84145; 84484; 85025; 85379; 87426; 93005; 97162; 99285; C1893; J0456; J0696; J1200; J2270; J3370; J3490; J7030; J7060; Q9967

== ENCOUNTER 2022-07-22 15:07 | Emergency (ER) | payer MEDICAID ==
[~2022-07-22] VITALS: Ht 149.9 cm; Wt 91.0 kg
[~2022-07-22 15:07] MED LIST changes: +LEVO750T68 MT
[2022-07-22] MEDS ORDERED: HYDROCODONE/ACETAMINOPHEN 10/325MG TABLET PO ONE (18:30)
[2022-07-22] MEDS ORDERED: LEVOFLOXACIN 250MG TABLET PO ONE (18:30)
[2022-07-22] MEDS ORDERED: CIPR-263 MT (21:43)
[2022-07-22] MEDS ORDERED: MORPHINE SULFATE 4 MG/ML CPJ (NOT FOR IM USE) IV ONE (21:45)
[2022-07-22] MEDS: CETIRIZINE 10MG TABLET PO SCH ×2 (23:52→23:53)
[2022-07-22 23:54] VITALS: BP 132/74
== END 2022-07-23 05:44 | disposition home or self-care (01) ==
LOC: ER 15:07
DX: J18.9 Pneumonia, unspecified organism (principal); R07.89 Other chest pain; R09.81 Nasal congestion; J45.909 Unspecified asthma, uncomplicated; I10 Essential (primary) hypertension; Z79.899 Other long term (current) drug therapy; Z88.0 Allergy status to penicillin
CPT/HCPCS: 71045; 93005; 96374; 99283; J2270

== ENCOUNTER 2022-07-25 02:28 | Emergency (ER) | payer MEDICAID ==
[~2022-07-25] VITALS: Ht 165.1 cm; Wt 110.0 kg
[~2022-07-25 02:28] MED LIST changes: +CIPR-263 MT
[2022-07-25 07:59] VITALS: BP 123/86
[2022-07-25 09:41] LABS: CHLORIDE 108 mEq/L (98-107)
[2022-07-25 09:42] LABS: BASOPHILS % 0.2 % (0.0-2.0); EOSINOPHILS % 0.8 % (0.0-5.0); HEMOGLOBIN. 10.8 g/dL (12.0-16.0); LYMPHOCYTES % 23.8 % (20.0-50.0); MEAN CORPUSCULAR HEMOGLOBIN 30.1 pg (28.0-32.0); MEAN CORPUSCULAR VOLUME 92.1 fL (81.0-99.0); MONOCYTES % 11.9 % (2.0-8.0); NEUTROPHILS % 63.3 % (40.0-76.0); PLATELET 298 x1000/uL (130-400); RED BLOOD CELL COUNT 3.58 mill/uL (4.2-5.4); RED CELL DISTRIBUTION WIDTH 14.3 % (11.6-14.6)
[2022-07-25] MEDS ORDERED: ONDA4TAB50 MT (10:27)
[2022-07-25] MEDS ORDERED: DIPHENHYDRAMINE 25MG CAPSULE PO ONE (10:30)
[2022-07-25] MEDS ORDERED: ONDANSETRON HCL 4MG/2ML INJ IV ONE (11:00)
[2022-07-25] MEDS ORDERED: SODIUM CHLORIDE 0.9% 1,000 ML IV ONE (11:00)
== END 2022-07-25 15:47 | disposition home or self-care (01) ==
LOC: ER 02:28
DX: R11.2 Nausea with vomiting, unspecified (principal); R05.9 Cough, unspecified; R50.9 Fever, unspecified; J45.909 Unspecified asthma, uncomplicated; I10 Essential (primary) hypertension; Z87.01 Personal history of pneumonia (recurrent); Z79.899 Other long term (current) drug therapy
CPT/HCPCS: 36415; 71045; 80053; 85025; 96374; 99284; J2405; J7030; Q0163

== ENCOUNTER 2022-08-11 12:30 | Inpatient (IN) | payer MEDICAID ==
[~2022-08-11] VITALS: Ht 162.6 cm; Wt 90.7 kg
[~2022-08-11 12:30] MED LIST changes: +ONDA4TAB50 MT
[2022-08-11 14:58] LABS: BASOPHILS % 0.7 % (0.0-2.0); EOSINOPHILS % 6.6 % (0.0-5.0); HEMATOCRIT. 32.2 % (36.0-48.0); HEMOGLOBIN. 10.6 g/dL (12.0-16.0); LYMPHOCYTES % 50.2 % (20.0-50.0); MEAN CORPUSCULAR HEMOGLOBIN 30.1 pg (28.0-32.0); MEAN CORPUSCULAR VOLUME 91.5 fL (81.0-99.0); MEAN PLATELET VOLUME 8.3 fl (7.4-10.4); MONOCYTES % 6.7 % (2.0-8.0); NEUTROPHILS % 35.8 % (40.0-76.0); PLATELET 213 x1000/uL (130-400); RED BLOOD CELL COUNT 3.52 mill/uL (4.2-5.4); RED CELL DISTRIBUTION WIDTH 15.3 % (11.6-14.6)
[2022-08-11] MEDS ORDERED: ASPIRIN 81MG TABLET PO ONE (16:00)
[2022-08-11] MEDS ORDERED: DIPHENHYDRAMINE 50MG/ML VIAL IV ONE (16:30)
[2022-08-11] MEDS ORDERED: KETOROLAC 30MG/ML VIAL IV ONE (16:30)
[2022-08-11 16:56] LABS: CHLORIDE 113 mEq/L (98-107)
[2022-08-11] MEDS ORDERED: CLONIDINE 0.1MG TABLET PO PRN (19:00)
[2022-08-11] MEDS ORDERED: MAGNESIUM/ALUMINUM HYDROXIDE/SIMETHICONE 30ML UDC PO PRN (19:00)
[2022-08-11] MEDS ORDERED: ONDANSETRON HCL 4MG/2ML INJ IV PRN (19:00)
[2022-08-11] MEDS ORDERED: ENOXAPARIN 40MG/0.4ML SYR SUBCUT SCH (19:00)
[2022-08-11] MEDS ORDERED: DOCUSATE SODIUM 100MG CAPSULE PO PRN (19:00)
[2022-08-11] MEDS ORDERED: NALOXONE HCL 0.4MG/ML VIAL IV PRN (19:15)
[2022-08-11 20:00] VITALS: BP 141/83
[2022-08-11 21:00] VITALS: BP 141/90
[2022-08-11] MEDS: GUAIFENESIN 200MG/10ML SUGAR FREE UDC PO PRN (21:12)
[2022-08-11] MEDS: ENOXAPARIN 30MG/0.3ML SYR SUBCUT SCH (21:13)
[2022-08-11] MEDS: NITROGLYCERIN 0.4MG TABLET SL SL PRN (22:11)
[2022-08-12] VITALS: BP 111/90
[2022-08-12] MEDS: TRAMADOL 50MG TABLET PO PRN ×3 (02:30→14:39)
[2022-08-12] MEDS: ENOXAPARIN 30MG/0.3ML SYR SUBCUT SCH ×2 (06:58→17:42)
[2022-08-12 08:00] VITALS: BP 134/65
[2022-08-12 08:17] LABS: BASOPHILS % 0.8 % (0.0-2.0); EOSINOPHILS % 7.6 % (0.0-5.0); HEMATOCRIT. 35.3 % (36.0-48.0); HEMOGLOBIN. 11.7 g/dL (12.0-16.0); LYMPHOCYTES % 46.4 % (20.0-50.0); MEAN CORPUSCULAR HEMOGLOBIN 30.7 pg (28.0-32.0); MEAN CORPUSCULAR VOLUME 92.9 fL (81.0-99.0); MEAN PLATELET VOLUME 9.2 fl (7.4-10.4); MONOCYTES % 10.9 % (2.0-8.0); NEUTROPHILS % 34.3 % (40.0-76.0); PLATELET 205 x1000/uL (130-400); RED CELL DISTRIBUTION WIDTH 15.5 % (11.6-14.6)
[2022-08-12] MEDS: GUAIFENESIN 200MG/10ML SUGAR FREE UDC PO PRN ×3 (09:06→22:23)
[2022-08-12 09:46] LABS: CHLORIDE 112 mEq/L (98-107)
[2022-08-12] MEDS ORDERED: PNEUMOCOCCAL 23-VAL P-SAC VAC 0.5 ML IM ONE (10:00)
[2022-08-12 10:27] LABS: HDL CHOLESTEROL 60 mg/dL (40-59); LDL CHOLESTEROL 79 mg/dL (5-100)
[2022-08-12 12:00] VITALS: BP 128/87
[2022-08-12] MEDS: PHENYTOIN SODIUM EXTENDED 100MG CAPSULE PO SCH ×2 (14:36→21:30)
[2022-08-12] MEDS: GABAPENTIN 300MG CAPSULE PO SCH ×2 (14:36→21:30)
[2022-08-12] MEDS: MENTHOL/LANOLIN/CALAMINE/ZN OX OINT 71GM TOP SCH ×2 (14:36→17:41)
[2022-08-12 16:00] VITALS: BP 128/74
[2022-08-12] MEDS ORDERED: DIPHENHYDRAMINE 50MG/ML VIAL IV PRN (18:15)
[2022-08-12] MEDS: DIPHENHYDRAMINE 25MG CAPSULE PO PRN (18:46)
[2022-08-12] MEDS: BENZONATATE 100MG CAPSULE PO PRN (18:46)
[2022-08-12] MEDS ORDERED: LORAZEPAM 2MG/ML CPJ IM PRN (19:45)
[2022-08-12 20:00] VITALS: BP 113/69
[2022-08-12] MEDS: DIVALPROEX SODIUM 500MG DR TABLET PO SCH (21:30)
[2022-08-13] VITALS: BP 118/72
[2022-08-13] MEDS: NITROGLYCERIN 0.4MG TABLET SL SL PRN (02:18)
[2022-08-13] MEDS: BENZONATATE 100MG CAPSULE PO PRN ×3 (02:18→19:32)
[2022-08-13] MEDS: DIPHENHYDRAMINE 25MG CAPSULE PO PRN ×2 (03:17→20:34)
[2022-08-13 04:00] VITALS: BP 122/74
[2022-08-13] MEDS ORDERED: KETOROLAC 15MG/ML VIAL IV NR (04:00)
[2022-08-13] MEDS ORDERED: MAGNESIUM HYDROXIDE 400MG/5ML 30ML UDC PO PRN (04:00)
[2022-08-13] MEDS: TRAMADOL 50MG TABLET PO PRN (04:04)
[2022-08-13] MEDS: ENOXAPARIN 30MG/0.3ML SYR SUBCUT SCH ×2 (05:00→19:32)
[2022-08-13] MEDS: GABAPENTIN 300MG CAPSULE PO SCH ×3 (05:00→20:35)
[2022-08-13] MEDS: PHENYTOIN SODIUM EXTENDED 100MG CAPSULE PO SCH ×3 (05:00→22:41)
[2022-08-13] MEDS: GUAIFENESIN 200MG/10ML SUGAR FREE UDC PO PRN ×3 (05:04→20:34)
[2022-08-13 08:00] VITALS: BP 143/83
[2022-08-13] MEDS: DIVALPROEX SODIUM 500MG DR TABLET PO SCH ×2 (09:03→20:34)
[2022-08-13] MEDS: PANTOPRAZOLE 40MG DR TABLET PO SCH (09:03)
[2022-08-13] MEDS: ACETAMINOPHEN 325MG TABLET PO PRN ×2 (09:08→15:11)
[2022-08-13] MEDS: MENTHOL/LANOLIN/CALAMINE/ZN OX OINT 71GM TOP SCH ×2 (09:09→19:33)
[2022-08-13 12:00] VITALS: BP 126/67
[2022-08-13] MEDS: LEVOFLOXACIN 250MG TABLET PO SCH (12:48)
[2022-08-13 16:00] VITALS: BP_SYST 126; BP_SYST 137; BP_DIAS 67; BP_DIAS 90
[2022-08-13 20:00] VITALS: BP 105/65
[2022-08-14] VITALS: BP 120/66
[2022-08-14] MEDS: TRAMADOL 50MG TABLET PO PRN (01:01)
[2022-08-14 04:00] VITALS: BP 101/44
[2022-08-14] MEDS: ENOXAPARIN 30MG/0.3ML SYR SUBCUT SCH (06:36)
[2022-08-14] MEDS: PHENYTOIN SODIUM EXTENDED 100MG CAPSULE PO SCH ×2 (06:36→14:23)
[2022-08-14] MEDS: GABAPENTIN 300MG CAPSULE PO SCH ×2 (06:36→14:23)
[2022-08-14] MEDS: PANTOPRAZOLE 40MG DR TABLET PO SCH (06:36)
[2022-08-14 08:00] VITALS: BP 102/63
[2022-08-14] MEDS: DIVALPROEX SODIUM 500MG DR TABLET PO SCH (09:29)
[2022-08-14] MEDS: BENZONATATE 100MG CAPSULE PO PRN (09:29)
[2022-08-14] MEDS: MENTHOL/LANOLIN/CALAMINE/ZN OX OINT 71GM TOP SCH ×2 (09:30→16:47)
[2022-08-14] MEDS: ACETAMINOPHEN 325MG TABLET PO PRN (09:30)
[2022-08-14] MEDS ORDERED: LIDOCAINE 5% PATCH TOP SCH (09:45)
[2022-08-14] MEDS: LEVOFLOXACIN 250MG TABLET PO SCH (11:00)
[2022-08-14 12:00] VITALS: BP 99/56
[2022-08-14 16:00] VITALS: BP 119/59
[2022-08-14] MEDS: GUAIFENESIN 200MG/10ML SUGAR FREE UDC PO PRN (16:46)
[2022-08-14 17:05] VITALS: BP 119/59
[2022-08-15] MEDS ORDERED: FAMOTIDINE 20MG TABLET PO SCH (09:00)
== END 2022-08-14 18:10 | disposition home health service (06) | DRG 145 ==
LOC: ER 12:30 → EDBEDREQ 15:51 → EDBEDREQTM 15:53 → 7WST 18:55
PROVIDERS: ADMIT Hospitalist; ATTEND Hospitalist
DX: J20.9 Acute bronchitis, unspecified (principal); E43 Unspecified severe protein-calorie malnutrition; J45.901 Unspecified asthma with (acute) exacerbation; Q05.9 Spina bifida, unspecified; G40.909 Epilepsy, unspecified, not intractable, without status epilepticus; F20.9 Schizophrenia, unspecified; S30.810A Abrasion of lower back and pelvis, initial encounter; E66.9 Obesity, unspecified; I10 Essential (primary) hypertension; Z88.0 Allergy status to penicillin; Z88.2 Allergy status to sulfonamides; Z79.899 Other long term (current) drug therapy; Z88.8 Allergy status to other drugs, medicaments and biological substances; Z68.34 Body mass index [BMI] 34.0-34.9, adult
CPT/HCPCS: 36415; 71045; 80053; 80061; 82040; 83880; 84134; 84484; 85025; 87426; 93005; 93971; 97162; 99285; J1200; J1650; J1885; J2405; Q0163

== ENCOUNTER 2022-09-02 16:26 | Emergency (ER) | payer MEDICAID ==
[~2022-09-02] VITALS: Ht 149.9 cm; Wt 105.0 kg
[2022-09-02 18:05] LABS: BASOPHILS % 0.6 % (0.0-2.0); EOSINOPHILS % 3.4 % (0.0-5.0); HEMATOCRIT. 38.6 % (36.0-48.0); HEMOGLOBIN. 12.6 g/dL (12.0-16.0); LYMPHOCYTES % 53.8 % (20.0-50.0); MEAN CORPUSCULAR HEMOGLOBIN 30.4 pg (28.0-32.0); MEAN CORPUSCULAR VOLUME 93.3 fL (81.0-99.0); MONOCYTES % 9.3 % (2.0-8.0); NEUTROPHILS % 32.9 % (40.0-76.0); PLATELET 194 x1000/uL (130-400); RED BLOOD CELL COUNT 4.14 mill/uL (4.2-5.4); RED CELL DISTRIBUTION WIDTH 15.2 % (11.6-14.6)
[2022-09-02 18:14] LABS: CHLORIDE 112 mEq/L (98-107)
[2022-09-02] MEDS ORDERED: TOPUD MT (23:13)
[2022-09-02] MEDS ORDERED: HYDROCODONE/ACETAMINOPHEN 5/325MG TABLET PO ONE (23:15)
[2022-09-03] MEDS ORDERED: KETOROLAC 15MG/ML VIAL IM ONE (01:15)
[2022-09-03] MEDS ORDERED: DIPHENHYDRAMINE 25MG CAPSULE PO ONE (03:00)
[2022-09-03] MEDS ORDERED: DIPHENHYDRAMINE 25MG CAPSULE PO NR (03:15)
[2022-09-03 04:00] VITALS: BP 126/71
== END 2022-09-03 08:35 | disposition home or self-care (01) ==
LOC: ER 16:26
DX: M79.89 Other specified soft tissue disorders (principal); J45.909 Unspecified asthma, uncomplicated; I10 Essential (primary) hypertension; Z87.01 Personal history of pneumonia (recurrent); F20.9 Schizophrenia, unspecified; Z90.49 Acquired absence of other specified parts of digestive tract; Z79.899 Other long term (current) drug therapy; Z88.0 Allergy status to penicillin
CPT/HCPCS: 36415; 73560; 80053; 83880; 85025; 93971; 96372; 99285; J1885; Q0163

== ENCOUNTER 2022-09-10 21:24 | Emergency (ER) | payer MEDICAID ==
[~2022-09-10] VITALS: Ht 167.6 cm; Wt 87.0 kg
[2022-09-11 01:20] LABS: BASOPHILS % 0.5 % (0.0-2.0); EOSINOPHILS % 2.6 % (0.0-5.0); HEMOGLOBIN. 12.1 g/dL (12.0-16.0); LYMPHOCYTES % 48.2 % (20.0-50.0); MEAN CORPUSCULAR VOLUME 95.1 fL (81.0-99.0); MEAN PLATELET VOLUME 8.9 fl (7.4-10.4); MONOCYTES % 6.4 % (2.0-8.0); NEUTROPHILS % 42.3 % (40.0-76.0); PLATELET 222 x1000/uL (130-400); RED BLOOD CELL COUNT 3.89 mill/uL (4.2-5.4)
[2022-09-11 01:27] LABS: CHLORIDE 114 mEq/L (98-107)
[2022-09-11 01:29] LABS: PROTHROMBIN TIME 10.4 sec (9.6-11.0)
[2022-09-11] MEDS ORDERED: DIPHENHYDRAMINE 50MG/ML VIAL IV ONE ×2 (01:45→05:45)
[2022-09-11] MEDS ORDERED: KETOROLAC 15MG/ML VIAL IV ONE (01:45)
[2022-09-11] MEDS ORDERED: MORPHINE SULFATE 4 MG/ML CPJ (NOT FOR IM USE) IV ONE (05:00)
[2022-09-11 05:29] LABS: CLARITY URINE TURBID (CLEAR); COLOR URINE DARK YELLOW (YELLOW); KETONES URINE TRACE (NEGATIVE); LEUKOCYTE ESTERASE URINE 2+ (NEGATIVE); NITRITE URINE POSITIVE (NEGATIVE); OCCULT BLOOD URINE TRACE (NEGATIVE); PH URINE 5.5 (4.5-8.0); PROTEIN URINE 2+ (NEGATIVE); SPECIFIC GRAVITY URINE 1.041 (1.005-1.030)
[2022-09-11] MEDS ORDERED: LEVOFLOXACIN 500MG TABLET PO STA (05:53)
[2022-09-11] MEDS ORDERED: CIPR-263 MT (06:34)
[2022-09-11 14:09] VITALS: BP 122/78
== END 2022-09-11 14:10 | disposition home or self-care (01) ==
LOC: ER 21:24
DX: R10.13 Epigastric pain (principal); N39.0 Urinary tract infection, site not specified; Q05.9 Spina bifida, unspecified; I10 Essential (primary) hypertension; F20.9 Schizophrenia, unspecified; G40.909 Epilepsy, unspecified, not intractable, without status epilepticus; J45.909 Unspecified asthma, uncomplicated; Z90.49 Acquired absence of other specified parts of digestive tract; Z86.19 Personal history of other infectious and parasitic diseases; Z88.5 Allergy status to narcotic agent; Z88.2 Allergy status to sulfonamides; Z88.6 Allergy status to analgesic agent; Z91.040 Latex allergy status; Z88.0 Allergy status to penicillin
CPT/HCPCS: 36415; 74176; 76830; 76856; 80053; 81003; 81025; 83690; 85025; 85610; 87086; 96374; 96375; 96376; 99285; J1200; J1885; J2270

== ENCOUNTER 2022-09-27 17:31 | Emergency (ER) | payer MEDICAID ==
[~2022-09-27] VITALS: Ht 149.9 cm; Wt 100.0 kg
[2022-09-27] MEDS ORDERED: ONDANSETRON HCL 4MG/2ML INJ IV STA (19:26)
[2022-09-27] MEDS ORDERED: KETOROLAC 30MG/ML VIAL IV STA (19:26)
[2022-09-27] MEDS ORDERED: DIPHENHYDRAMINE 25MG CAPSULE PO ONE (19:30)
[2022-09-27] MEDS ORDERED: SODIUM CHLORIDE 0.9% 1,000 ML IV ONE (19:30)
[2022-09-27 20:16] LABS: BASOPHILS % 0.4 % (0.0-2.0); EOSINOPHILS % 3.6 % (0.0-5.0); LYMPHOCYTES % 37.7 % (20.0-50.0); MEAN CORPUSCULAR HEMOGLOBIN 30.7 pg (28.0-32.0); MEAN CORPUSCULAR VOLUME 92.3 fL (81.0-99.0); MEAN PLATELET VOLUME 8.9 fl (7.4-10.4); MONOCYTES % 5.7 % (2.0-8.0); NEUTROPHILS % 52.6 % (40.0-76.0); PLATELET 231 x1000/uL (130-400); RED CELL DISTRIBUTION WIDTH 14.2 % (11.6-14.6)
[2022-09-27 20:23] LABS: CHLORIDE 111 mEq/L (98-107)
[2022-09-27 20:28] LABS: INR 0.9
[2022-09-27 20:44] LABS: HCG SCREEN NEGATIVE
[2022-09-27] MEDS ORDERED: POTASSIUM CHLORIDE 20MEQ TABLET SR PO ONE (22:45)
[2022-09-28] MEDS ORDERED: KETOROLAC 30MG/ML VIAL IV NR (00:45)
[2022-09-28] MEDS ORDERED: DIPHENHYDRAMINE 25MG CAPSULE PO NR (00:45)
[2022-09-28] MEDS ORDERED: POTASSIUM CHLORIDE 20MEQ TABLET SR PO NR (00:45)
[2022-09-28] MEDS ORDERED: ONDANSETRON HCL 4MG/2ML INJ IV NR (00:45)
[2022-09-28] MEDS ORDERED: KETOROLAC 15MG/ML VIAL IM NR (10:45)
[2022-09-28 10:47] VITALS: BP 117/69
== END 2022-09-28 10:57 | disposition home or self-care (01) ==
LOC: ER 17:45
DX: R10.30 Lower abdominal pain, unspecified (principal); R51.9 Headache, unspecified; I10 Essential (primary) hypertension; J45.909 Unspecified asthma, uncomplicated; Z88.0 Allergy status to penicillin; Z88.6 Allergy status to analgesic agent; Z88.8 Allergy status to other drugs, medicaments and biological substances; Z91.040 Latex allergy status; Z79.899 Other long term (current) drug therapy; Z98.890 Other specified postprocedural states; Z90.49 Acquired absence of other specified parts of digestive tract; Z86.59 Personal history of other mental and behavioral disorders
CPT/HCPCS: 36415; 70450; 74176; 80053; 83690; 84703; 85025; 85610; 93005; 96361; 96374; 96375; 99285; J1885; J2405; J7030; Q0163

== ENCOUNTER 2022-10-05 15:04 | Emergency (ER) | payer MEDICAID ==
[~2022-10-05] VITALS: Ht 162.6 cm; Wt 82.0 kg
[2022-10-05 15:51] LABS: BASOPHILS % 0.7 % (0.0-2.0); HEMATOCRIT. 38.3 % (36.0-48.0); HEMOGLOBIN. 12.6 g/dL (12.0-16.0); LYMPHOCYTES % 50.2 % (20.0-50.0); MEAN CORPUSCULAR VOLUME 91.2 fL (81.0-99.0); MEAN PLATELET VOLUME 9.5 fl (7.4-10.4); MONOCYTES % 7.7 % (2.0-8.0); NEUTROPHILS % 38.4 % (40.0-76.0); PLATELET 248 x1000/uL (130-400)
[2022-10-05 15:57] LABS: CHLORIDE 110 mEq/L (98-107)
[2022-10-05 16:26] LABS: HCG SCREEN NEGATIVE
[2022-10-05] MEDS ORDERED: IBUPROFEN 600MG TABLET PO ONE (17:00)
[2022-10-05] MEDS ORDERED: DIPHENHYDRAMINE 25MG CAPSULE PO ONE (17:00)
[2022-10-05] MEDS ORDERED: IBUPROFEN 100MG/5ML UDC PO ONE (17:30)
[2022-10-05] MEDS ORDERED: IBUPROFEN 100MG/5ML UDC PO NR (18:00)
[2022-10-06 10:26] VITALS: BP 118/74
== END 2022-10-06 10:28 | disposition home or self-care (01) ==
LOC: ER 15:04
DX: R07.89 Other chest pain (principal); R51.9 Headache, unspecified; I10 Essential (primary) hypertension; R94.31 Abnormal electrocardiogram [ECG] [EKG]; Z98.2 Presence of cerebrospinal fluid drainage device
CPT/HCPCS: 36415; 71045; 80053; 83880; 84484; 84703; 85025; 93005; 99285; Q0163

== ENCOUNTER 2022-10-11 19:48 | Emergency (ER) | payer MEDICAID, OTHER ==
[~2022-10-11] VITALS: Ht 160 cm; Wt 86.0 kg
[2022-10-11] MEDS ORDERED: SODIUM CHLORIDE 0.9% 1,000 ML IV ONE (20:15)
[2022-10-11] MEDS ORDERED: MORPHINE SULFATE 4 MG/ML CPJ (NOT FOR IM USE) IV STA (20:15)
[2022-10-11 20:52] LABS: BASOPHILS % 0.3 % (0.0-2.0); EOSINOPHILS % 2.9 % (0.0-5.0); HEMATOCRIT. 37.4 % (36.0-48.0); HEMOGLOBIN. 12.5 g/dL (12.0-16.0); LYMPHOCYTES % 38.7 % (20.0-50.0); MEAN CORPUSCULAR HEMOGLOBIN 30.6 pg (28.0-32.0); MEAN CORPUSCULAR VOLUME 91.8 fL (81.0-99.0); MEAN PLATELET VOLUME 10.1 fl (7.4-10.4); MONOCYTES % 9.5 % (2.0-8.0); NEUTROPHILS % 48.6 % (40.0-76.0); PLATELET 181 x1000/uL (130-400); RED BLOOD CELL COUNT 4.08 mill/uL (4.2-5.4); RED CELL DISTRIBUTION WIDTH 14.2 % (11.6-14.6)
[2022-10-11 21:00] LABS: CHLORIDE 109 mEq/L (98-107)
[2022-10-11 21:07] LABS: HCG SCREEN NEGATIVE
[2022-10-11 21:10] LABS: ETHANOL BLOOD < 10 mg/dL
[2022-10-11] MEDS ORDERED: MORPHINE SULFATE 4 MG/ML CPJ (NOT FOR IM USE) IV NR (23:45)
[2022-10-12] MEDS ORDERED: DIPHENHYDRAMINE 50MG/ML VIAL IV ONE (00:30)
[2022-10-12 01:58] LABS: CLARITY URINE CLOUDY (CLEAR); COLOR URINE YELLOW (YELLOW); KETONES URINE NEGATIVE (NEGATIVE); LEUKOCYTE ESTERASE URINE 2+ (NEGATIVE); NITRITE URINE POSITIVE (NEGATIVE); OCCULT BLOOD URINE NEGATIVE (NEGATIVE); PH URINE 7.5 (4.5-8.0); PROTEIN URINE NEGATIVE (NEGATIVE); SPECIFIC GRAVITY URINE 1.016 (1.005-1.030)
[2022-10-12 02:08] LABS: *AMPHETAMINES SCREEN URINE NEGATIVE (NEGATIVE); *BARBITURATES SCREEN URINE NEGATIVE (NEGATIVE); *BENZODIAZEPINES SCREEN URINE NEGATIVE (NEGATIVE); *COCAINE SCREEN URINE NEGATIVE (NEGATIVE); CANNABINOID URINE SCREEN NEGATIVE (NEGATIVE); METHADONE URINE SCREEN NEGATIVE (NEGATIVE); OPIATES URINE SCREEN NEGATIVE (NEGATIVE); PHENCYCLIDINE URINE SCREEN NEGATIVE (NEGATIVE)
[2022-10-12 08:00] VITALS: BP 124/78
== END 2022-10-12 10:32 | disposition home or self-care (01) ==
LOC: ER 19:48
DX: R51.9 Headache, unspecified (principal); R53.1 Weakness; R10.30 Lower abdominal pain, unspecified; J45.909 Unspecified asthma, uncomplicated; I10 Essential (primary) hypertension; F20.9 Schizophrenia, unspecified; Z86.73 Personal history of transient ischemic attack (TIA), and cerebral infarction without residual deficits; Z79.899 Other long term (current) drug therapy
CPT/HCPCS: 36415; 70450; 71045; 74176; 76830; 76856; 80053; 80305; 80320; 81003; 82962; 84703; 85025; 93005; 96361; 96374; 96375; 99285; J1200; J2270; J7030; G0480

== ENCOUNTER 2022-10-14 21:06 | Emergency (ER) | payer MEDICAID, OTHER ==
[~2022-10-14] VITALS: Ht 175.3 cm; Wt 100.0 kg
[2022-10-14] MEDS ORDERED: KETOROLAC 60MG/2ML VIAL IM STA (23:14)
[2022-10-15 00:50] VITALS: BP 120/78
[2022-10-15 01:19] LABS: HEMOGLOBIN. 12.3 g/dL (12.0-16.0)
[2022-10-15 01:27] LABS: BASOPHILS % 0.8 % (0.0-2.0); EOSINOPHILS % 3.1 % (0.0-5.0); HEMATOCRIT. 37.4 % (36.0-48.0); LYMPHOCYTES % 48.8 % (20.0-50.0); MEAN CORPUSCULAR VOLUME 91.2 fL (81.0-99.0); MEAN PLATELET VOLUME 10.7 fl (7.4-10.4); MONOCYTES % 8.1 % (2.0-8.0); NEUTROPHILS % 39.2 % (40.0-76.0); PLATELET 191 x1000/uL (130-400); RED CELL DISTRIBUTION WIDTH 14.2 % (11.6-14.6)
[2022-10-15 01:28] LABS: CHLORIDE 108 mEq/L (98-107)
[2022-10-19] MEDS ORDERED: LEVO-65 MT (10:42)
== END 2022-10-15 09:45 | disposition home or self-care (01) ==
LOC: ER 21:06
DX: R18.8 Other ascites (principal); I10 Essential (primary) hypertension; Z88.0 Allergy status to penicillin; Z88.6 Allergy status to analgesic agent; Z91.040 Latex allergy status; Z88.1 Allergy status to other antibiotic agents; Z88.2 Allergy status to sulfonamides; Z88.5 Allergy status to narcotic agent; Z79.899 Other long term (current) drug therapy; Z98.890 Other specified postprocedural states; Z90.49 Acquired absence of other specified parts of digestive tract; Z86.73 Personal history of transient ischemic attack (TIA), and cerebral infarction without residual deficits
CPT/HCPCS: 36415; 76856; 80053; 83690; 85025; 96372; 99285; J1885

== ENCOUNTER 2022-10-27 19:58 | Emergency (ER) | payer MEDICAID, OTHER ==
[~2022-10-27] VITALS: Ht 149.9 cm; Wt 118.0 kg
[~2022-10-27 19:58] MED LIST changes: -CIPR-263 MT; +LEVO-65 MT; -LEVO750T68 MT
[2022-10-27] MEDS ORDERED: SODIUM CHLORIDE 0.9% 1,000 ML IV ONE (20:45)
[2022-10-27 21:30] LABS: HEMATOCRIT. 35.2 % (36.0-48.0); HEMOGLOBIN. 11.6 g/dL (12.0-16.0); MEAN CORPUSCULAR HEMOGLOBIN 29.8 pg (28.0-32.0); MEAN CORPUSCULAR VOLUME 90.3 fL (81.0-99.0); MEAN PLATELET VOLUME 9.6 fl (7.4-10.4); PLATELET 155 x1000/uL (130-400); RED BLOOD CELL COUNT 3.89 mill/uL (4.2-5.4); RED CELL DISTRIBUTION WIDTH 14.2 % (11.6-14.6)
[2022-10-27 21:38] LABS: CHLORIDE 111 mEq/L (98-107)
[2022-10-27 21:47] LABS: B-HCG QUANTITATIVE < 1 mIU/mL (<3)
[2022-10-27 21:50] LABS: PLATELET ESTIMATE NORMAL
[2022-10-27] MEDS ORDERED: MORPHINE SULFATE 4 MG/ML CPJ (NOT FOR IM USE) IV ONE (23:15)
[2022-10-27] MEDS ORDERED: DIPHENHYDRAMINE 50MG/ML VIAL IV ONE (23:15)
[2022-10-27 23:44] LABS: CLARITY URINE TURBID (CLEAR); COLOR URINE YELLOW (YELLOW); KETONES URINE TRACE (NEGATIVE); LEUKOCYTE ESTERASE URINE 3+ (NEGATIVE); NITRITE URINE POSITIVE (NEGATIVE); OCCULT BLOOD URINE 2+ (NEGATIVE); PH URINE 5.5 (4.5-8.0); PROTEIN URINE 1+ (NEGATIVE); SPECIFIC GRAVITY URINE 1.022 (1.005-1.030)
[2022-10-28] MEDS ORDERED: POTA10CA42 MT (00:12)
[2022-10-28] MEDS ORDERED: CIPR-263 MT (00:12)
[2022-10-28 00:14] LABS: *AMPHETAMINES SCREEN URINE NEGATIVE (NEGATIVE); *BARBITURATES SCREEN URINE NEGATIVE (NEGATIVE); *BENZODIAZEPINES SCREEN URINE NEGATIVE (NEGATIVE); *COCAINE SCREEN URINE NEGATIVE (NEGATIVE); CANNABINOID URINE SCREEN NEGATIVE (NEGATIVE); METHADONE URINE SCREEN NEGATIVE (NEGATIVE); OPIATES URINE SCREEN NEGATIVE (NEGATIVE); PHENCYCLIDINE URINE SCREEN NEGATIVE (NEGATIVE)
[2022-10-28] MEDS ORDERED: POTASSIUM CHLORIDE 20MEQ/PACKET PO ONE (00:15)
[2022-10-28] MEDS ORDERED: LEVOFLOXACIN 750MG PREMIX 150 ML IV ONE (00:15)
[2022-10-28] MEDS ORDERED: POTASSIUM CHLORIDE 20MEQ/PACKET PO NR (01:00)
[2022-10-28 13:00] VITALS: BP 124/72
== END 2022-10-28 13:10 | disposition home or self-care (01) ==
LOC: ER 19:58
DX: N39.0 Urinary tract infection, site not specified (principal); I10 Essential (primary) hypertension; I69.354 Hemiplegia and hemiparesis following cerebral infarction affecting left non-dominant side; Z90.49 Acquired absence of other specified parts of digestive tract; Z98.2 Presence of cerebrospinal fluid drainage device; Z86.19 Personal history of other infectious and parasitic diseases; Z74.01 Bed confinement status; Z88.6 Allergy status to analgesic agent; Z88.5 Allergy status to narcotic agent; Z91.040 Latex allergy status; Z88.0 Allergy status to penicillin
CPT/HCPCS: 36415; 76856; 80053; 80305; 81003; 83690; 84702; 85025; 86850; 86900; 86901; 87077; 87086; 87186; 96361; 96375; 99291; J1200; J1956; J2270; J7030; Z7610

== ENCOUNTER 2022-11-06 01:56 | Inpatient (IN) | payer MEDICAID, OTHER ==
[~2022-11-06] VITALS: Ht 165.1 cm; Wt 99.8 kg
[~2022-11-06 01:56] MED LIST changes: +CIPR-263 MT; +POTA10CA42 MT
[2022-11-06] MEDS ORDERED: FAMOTIDINE 20MG/2ML VIAL IV STA (02:40)
[2022-11-06] MEDS ORDERED: METOCLOPRAMIDE HCL 10MG/2ML VIAL IV STA (02:40)
[2022-11-06] MEDS ORDERED: SODIUM CHLORIDE 0.9% 1,000 ML IV ONE (02:45)
[2022-11-06] MEDS ORDERED: DIPHENHYDRAMINE 50MG/ML VIAL IV ONE (02:45)
[2022-11-06 03:35] LABS: BASOPHILS % 0.2 % (0.0-2.0); EOSINOPHILS % 0.5 % (0.0-5.0); HEMATOCRIT. 37.3 % (36.0-48.0); HEMOGLOBIN. 12.1 g/dL (12.0-16.0); LYMPHOCYTES % 8.9 % (20.0-50.0); MEAN CORPUSCULAR VOLUME 89.1 fL (81.0-99.0); MEAN PLATELET VOLUME 8.3 fl (7.4-10.4); MONOCYTES % 9.4 % (2.0-8.0); PLATELET 248 x1000/uL (130-400); RED BLOOD CELL COUNT 4.18 mill/uL (4.2-5.4); RED CELL DISTRIBUTION WIDTH 14.4 % (11.6-14.6)
[2022-11-06 03:42] LABS: PROTHROMBIN TIME 10.9 sec (9.6-11.0)
[2022-11-06 03:44] LABS: HCG SCREEN NEGATIVE
[2022-11-06] MEDS ORDERED: MEROPENEM 1,000 MG in SODIUM CHLORIDE 0.9% 100 ML IV SCH (04:30)
[2022-11-06 05:36] LABS: CHLORIDE 111 mEq/L (98-107)
[2022-11-06] MEDS ORDERED: MORPHINE SULFATE 4 MG/ML CPJ (NOT FOR IM USE) IV ONE (06:00)
[2022-11-06] MEDS: MEROPENEM 1,000 MG in SODIUM CHLORIDE 0.9% 100 ML IV SCH ×2 (14:05→23:00)
[2022-11-06] MEDS ORDERED: ACETAMINOPHEN 325MG TABLET PO NR (17:45)
[2022-11-07] MEDS: MEROPENEM 1,000 MG in SODIUM CHLORIDE 0.9% 100 ML IV SCH ×3 (06:36→21:30)
[2022-11-07 08:00] VITALS: BP 135/55
[2022-11-07 09:45] VITALS: BP 137/77
[2022-11-07] MEDS ORDERED: DOCUSATE SODIUM 100MG CAPSULE PO SCH (11:30)
[2022-11-07] MEDS: TRAMADOL 50MG TABLET PO PRN ×2 (11:39→21:31)
[2022-11-07 12:00] VITALS: BP 133/64
[2022-11-07 12:36] LABS: BG BASE EXCESS -2.4 mmol/L (-2.0-2.0); BG CARBOXYHEMOGLOBIN 0.3 % (0.5-1.5); BG DEOXYHEMOGLOBIN 6.3 % (0.0-5.0); BG FRACTION INSPIRED OXYGEN 21; BG METHEMOGLOBIN 0.2 % (0.0-1.5); BG OXYGEN SATURATION 93.7 % (92.0-98.5); BG OXYHEMOGLOBIN 93.2 % (94.0-97.0); BG PCO2 24.1 mmHg (35.0-45.0); BG PH 7.515 (7.350-7.450); BG SAMPLE SITE RIGHT RADIAL; BG VENT MODE ROOM AIR
[2022-11-07] MEDS ORDERED: METOPROLOL SUCCINATE 50MG ER TABLET PO SCH (13:15)
[2022-11-07] MEDS: ONDANSETRON HCL 4MG/2ML INJ IV PRN (13:54)
[2022-11-07] MEDS: METOPROLOL TARTRATE 25MG TABLET PO SCH ×2 (13:54→21:30)
[2022-11-07] MEDS: GABAPENTIN 300MG CAPSULE PO SCH ×2 (13:54→18:26)
[2022-11-07] MEDS: DEXT 5%/0.45% NACL 1000ML 1,000 ML IV SCH (14:10)
[2022-11-07 15:08] LABS: HEMATOCRIT. 35.2 % (36.0-48.0); HEMOGLOBIN. 11.6 g/dL (12.0-16.0); MEAN CORPUSCULAR HEMOGLOBIN 29.3 pg (28.0-32.0); MEAN CORPUSCULAR VOLUME 89.1 fL (81.0-99.0); MEAN PLATELET VOLUME 9.3 fl (7.4-10.4); PLATELET 228 x1000/uL (130-400); RED BLOOD CELL COUNT 3.95 mill/uL (4.2-5.4); RED CELL DISTRIBUTION WIDTH 14.6 % (11.6-14.6)
[2022-11-07 16:00] VITALS: BP 102/62
[2022-11-07] MEDS ORDERED: IBUPROFEN 600MG TABLET PO PRN (16:00)
[2022-11-07 16:12] LABS: CHLORIDE 111 mEq/L (98-107)
[2022-11-07 16:22] LABS: PLATELET ESTIMATE NORMAL
[2022-11-07] MEDS: FERROUS SULFATE 325MG TABLET PO SCH (18:25)
[2022-11-07] MEDS: ENOXAPARIN 30MG/0.3ML SYR SUBCUT SCH (18:25)
[2022-11-07 20:00] VITALS: BP 121/72
[2022-11-07] MEDS: PHENYTOIN SODIUM EXTENDED 100MG CAPSULE PO SCH (21:30)
[2022-11-07] MEDS: DIPHENHYDRAMINE 50MG CAPSULE PO PRN (22:02)
[2022-11-07] MEDS ORDERED: ONDANSETRON HCL 4MG TABLET PO PRN (22:45)
[2022-11-07] MEDS ORDERED: ALBUTEROL 6.7GM HFA INHALER ORI PRN (22:45)
[2022-11-07] MEDS ORDERED: ACETAMINOPHEN 325MG TABLET PO PRN ×2 (22:45)
[2022-11-07] MEDS ORDERED: ALBUTEROL (0.083%) 2.5MG/3ML NEB HHN PRN (23:15)
[2022-11-08] VITALS: BP 118/75
[2022-11-08 04:00] VITALS: BP 108/54
[2022-11-08] MEDS: MEROPENEM 1,000 MG in SODIUM CHLORIDE 0.9% 100 ML IV SCH ×3 (05:13→21:42)
[2022-11-08 08:00] VITALS: BP 109/69
[2022-11-08] MEDS: METOPROLOL TARTRATE 25MG TABLET PO SCH ×2 (08:16→20:45)
[2022-11-08] MEDS: FERROUS SULFATE 325MG TABLET PO SCH ×2 (08:26→17:05)
[2022-11-08] MEDS: DIPHENHYDRAMINE 50MG CAPSULE PO PRN ×2 (08:26→09:39)
[2022-11-08] MEDS: POTASSIUM CHLORIDE 10MEQ TABLET SR PO SCH ×2 (08:26→17:05)
[2022-11-08] MEDS: GABAPENTIN 300MG CAPSULE PO SCH ×3 (08:27→17:05)
[2022-11-08] MEDS: DOCUSATE SODIUM 100MG CAPSULE PO SCH ×2 (08:27→17:05)
[2022-11-08] MEDS: DEXT 5%/0.45% NACL 1000ML 1,000 ML IV SCH (08:27)
[2022-11-08] MEDS: ENOXAPARIN 30MG/0.3ML SYR SUBCUT SCH ×2 (08:28→20:45)
[2022-11-08] MEDS: DIVALPROEX SODIUM 500MG DR TABLET PO SCH ×3 (08:31→17:05)
[2022-11-08] MEDS ORDERED: MEDICATION NOT ON FORMULARY EA (Ferrous Sulfate 325 MG) PO SCH (09:00)
[2022-11-08] MEDS ORDERED: GABAPENTIN 300MG CAPSULE PO SCH (09:00)
[2022-11-08] MEDS ORDERED: MEDICATION NOT ON FORMULARY EA (Potassium Chloride 1 CAP) MT SCH (09:00)
[2022-11-08] MEDS: ONDANSETRON HCL 4MG/2ML INJ IV PRN (09:39)
[2022-11-08] MEDS ORDERED: LEVOFLOXACIN 500MG TABLET PO SCH (11:00)
[2022-11-08] MEDS ORDERED: LIDOCAINE HCL 1% 10 MG/ML 10ML VIAL ONE (11:15)
[2022-11-08 12:00] VITALS: BP 113/62
[2022-11-08 16:00] VITALS: BP 110/70
[2022-11-08 20:00] VITALS: BP 113/68
[2022-11-08] MEDS: PHENYTOIN SODIUM EXTENDED 100MG CAPSULE PO SCH (20:45)
[2022-11-08] MEDS: TRAMADOL 50MG TABLET PO PRN (20:54)
[2022-11-08] MEDS ORDERED: PHENYTOIN SODIUM EXTENDED 100MG CAPSULE PO SCH (21:00)
[2022-11-08] MEDS ORDERED: DIPHENHYDRAMINE 50MG/ML VIAL IV NR (21:35)
[2022-11-09] VITALS: BP 95/58
[2022-11-09 04:00] VITALS: BP 104/55
[2022-11-09] MEDS: DEXT 5%/0.45% NACL 1000ML 1,000 ML IV SCH (04:43)
[2022-11-09] MEDS: MEROPENEM 1,000 MG in SODIUM CHLORIDE 0.9% 100 ML IV SCH ×3 (05:15→21:37)
[2022-11-09 06:10] LABS: HEMATOCRIT. 29.8 % (36.0-48.0); HEMOGLOBIN. 10.1 g/dL (12.0-16.0); MEAN CORPUSCULAR HEMOGLOBIN 29.7 pg (28.0-32.0); MEAN CORPUSCULAR VOLUME 87.7 fL (81.0-99.0); MEAN PLATELET VOLUME 9.3 fl (7.4-10.4); PLATELET 198 x1000/uL (130-400); RED CELL DISTRIBUTION WIDTH 14.6 % (11.6-14.6)
[2022-11-09 06:20] LABS: CHLORIDE 110 mEq/L (98-107)
[2022-11-09 08:00] VITALS: BP 108/71
[2022-11-09] MEDS: METOPROLOL TARTRATE 25MG TABLET PO SCH ×2 (09:00→20:35)
[2022-11-09] MEDS: ENOXAPARIN 30MG/0.3ML SYR SUBCUT SCH ×2 (09:00→20:35)
[2022-11-09] MEDS: DIPHENHYDRAMINE 50MG CAPSULE PO PRN ×2 (09:18→20:44)
[2022-11-09] MEDS: GABAPENTIN 300MG CAPSULE PO SCH ×3 (09:18→17:43)
[2022-11-09] MEDS: DOCUSATE SODIUM 100MG CAPSULE PO SCH ×2 (09:18→17:42)
[2022-11-09] MEDS: DIVALPROEX SODIUM 500MG DR TABLET PO SCH ×2 (09:19→17:42)
[2022-11-09] MEDS: POTASSIUM CHLORIDE 10MEQ TABLET SR PO SCH ×2 (09:19→17:43)
[2022-11-09] MEDS: FERROUS SULFATE 325MG TABLET PO SCH ×2 (09:20→17:43)
[2022-11-09] MEDS: TRAMADOL 50MG TABLET PO PRN ×2 (09:27→17:42)
[2022-11-09 12:00] VITALS: BP 130/80
[2022-11-09] MEDS: ONDANSETRON HCL 4MG TABLET PO PRN (14:13)
[2022-11-09 16:00] VITALS: BP 145/86
[2022-11-09] MEDS ORDERED: NALOXONE HCL 0.4MG/ML VIAL IV PRN (17:30)
[2022-11-09 19:42] LABS: PLATELET ESTIMATE NORMAL
[2022-11-09 20:00] VITALS: BP 143/94
[2022-11-09] MEDS: PHENYTOIN SODIUM EXTENDED 100MG CAPSULE PO SCH (20:35)
[2022-11-10] VITALS: BP 115/81
[2022-11-10] MEDS: ONDANSETRON HCL 4MG/2ML INJ IV PRN ×3 (00:04→17:40)
[2022-11-10 04:00] VITALS: BP 112/60
[2022-11-10] MEDS: DEXT 5%/0.45% NACL 1000ML 1,000 ML IV SCH ×2 (05:37→20:00)
[2022-11-10] MEDS: MEROPENEM 1,000 MG in SODIUM CHLORIDE 0.9% 100 ML IV SCH ×3 (05:38→22:00)
[2022-11-10 08:00] VITALS: BP 110/63
[2022-11-10] MEDS: POTASSIUM CHLORIDE 10MEQ TABLET SR PO SCH ×2 (08:36→16:15)
[2022-11-10] MEDS: DIVALPROEX SODIUM 500MG DR TABLET PO SCH ×2 (08:36→16:15)
[2022-11-10] MEDS: DOCUSATE SODIUM 100MG CAPSULE PO SCH ×2 (08:36→16:15)
[2022-11-10] MEDS: GABAPENTIN 300MG CAPSULE PO SCH ×3 (08:36→16:15)
[2022-11-10] MEDS: ENOXAPARIN 30MG/0.3ML SYR SUBCUT SCH ×2 (08:37→21:00)
[2022-11-10] MEDS: FERROUS SULFATE 325MG TABLET PO SCH ×2 (08:37→16:15)
[2022-11-10] MEDS: METOPROLOL TARTRATE 25MG TABLET PO SCH ×2 (08:37→21:00)
[2022-11-10 12:00] VITALS: BP 120/60
[2022-11-10] MEDS: GUAIFENESIN-DM 200MG-20MG/10ML UDC PO PRN ×2 (13:39→17:40)
[2022-11-10] MEDS: DIPHENHYDRAMINE 50MG CAPSULE PO PRN (14:30)
[2022-11-10] MEDS: ONDANSETRON HCL 4MG TABLET PO PRN (14:30)
[2022-11-10 16:00] VITALS: BP 113/71
[2022-11-10] MEDS: TRAMADOL 50MG TABLET PO PRN (16:15)
[2022-11-10 20:00] VITALS: BP 97/62
[2022-11-10] MEDS: PHENYTOIN SODIUM EXTENDED 100MG CAPSULE PO SCH (21:00)
[2022-11-11] VITALS: BP 100/64
[2022-11-11 04:00] VITALS: BP 110/61
[2022-11-11] MEDS: GUAIFENESIN-DM 200MG-20MG/10ML UDC PO PRN ×3 (04:01→08:36)
[2022-11-11] MEDS: MEROPENEM 1,000 MG in SODIUM CHLORIDE 0.9% 100 ML IV SCH (05:06)
[2022-11-11 08:00] VITALS: BP 122/67
[2022-11-11] MEDS: POTASSIUM CHLORIDE 10MEQ TABLET SR PO SCH (08:36)
[2022-11-11] MEDS: DOCUSATE SODIUM 100MG CAPSULE PO SCH (08:36)
[2022-11-11] MEDS: DIVALPROEX SODIUM 500MG DR TABLET PO SCH (08:36)
[2022-11-11] MEDS: ONDANSETRON HCL 4MG/2ML INJ IV PRN (08:36)
[2022-11-11] MEDS: METOPROLOL TARTRATE 25MG TABLET PO SCH (08:36)
[2022-11-11] MEDS: GABAPENTIN 300MG CAPSULE PO SCH (08:36)
[2022-11-11] MEDS: ENOXAPARIN 30MG/0.3ML SYR SUBCUT SCH (08:37)
[2022-11-11] MEDS: FERROUS SULFATE 325MG TABLET PO SCH (08:37)
[2022-11-11] MEDS: DIPHENHYDRAMINE 50MG CAPSULE PO PRN (08:48)
== END 2022-11-11 16:00 | disposition home health service (06) | DRG 720 ==
LOC: ER 01:56 → EDBEDREQSVC 15:02 → 7EST 11-07 09:02
PROVIDERS: ADMIT Internal Medicine; ATTEND Internal Medicine
PROC: 02HV33Z Insertion of Infusion Device into Superior Vena Cava, Percutaneous Approach (ICD-10-PCS; principal; 2022-11-08)
PROC: B5181ZA Fluoroscopy of Superior Vena Cava using Low Osmolar Contrast, Guidance (ICD-10-PCS; 2022-11-08)
PROC: B548ZZA Ultrasonography of Superior Vena Cava, Guidance (ICD-10-PCS; 2022-11-08)
DX: A41.9 Sepsis, unspecified organism (principal); E43 Unspecified severe protein-calorie malnutrition; E66.9 Obesity, unspecified; G40.909 Epilepsy, unspecified, not intractable, without status epilepticus; I10 Essential (primary) hypertension; N39.0 Urinary tract infection, site not specified; Z20.822 Contact with and (suspected) exposure to COVID-19; Z16.12 Extended spectrum beta lactamase (ESBL) resistance; Z88.2 Allergy status to sulfonamides; Z88.1 Allergy status to other antibiotic agents; Q05.9 Spina bifida, unspecified; Z88.6 Allergy status to analgesic agent; Z88.0 Allergy status to penicillin; Z88.8 Allergy status to other drugs, medicaments and biological substances; Z79.899 Other long term (current) drug therapy; Z68.36 Body mass index [BMI] 36.0-36.9, adult
CPT/HCPCS: 36415; 36573; 36600; 80048; 80053; 82140; 82375; 82805; 84703; 85025; 87426; 94640; 99285; C1725; C1769; C1893; J1200; J1650; J2185; J2270; J2405; J2765; J3490; J7030; J7050; Q0162; Q0163

== ENCOUNTER 2022-11-16 22:23 | Emergency (ER) | payer MEDICAID, OTHER ==
[~2022-11-16] VITALS: Ht 149.9 cm; Wt 118.0 kg
[~2022-11-16 22:23] MED LIST changes: -LEVO-65 MT; -POTA10CA42 MT; +POTA10CA43 MT; -TOPUD MT
[2022-11-17] MEDS ORDERED: ALBU6.7H3 INH (01:19)
[2022-11-17] MEDS ORDERED: LIDOCAINE 5% PATCH TOP SCH (02:30)
[2022-11-17] MEDS ORDERED: IBUPROFEN 400MG TABLET PO ONE (02:30)
[2022-11-17 03:10] VITALS: BP 127/88
== END 2022-11-17 03:51 | disposition home or self-care (01) ==
LOC: ER 22:23
DX: B34.9 Viral infection, unspecified (principal); R05.9 Cough, unspecified; I10 Essential (primary) hypertension; F20.9 Schizophrenia, unspecified; J45.909 Unspecified asthma, uncomplicated; Q05.9 Spina bifida, unspecified; Z20.822 Contact with and (suspected) exposure to COVID-19; Z90.49 Acquired absence of other specified parts of digestive tract; Z88.5 Allergy status to narcotic agent; Z88.0 Allergy status to penicillin; Z88.2 Allergy status to sulfonamides; Z88.6 Allergy status to analgesic agent; Z91.040 Latex allergy status
CPT/HCPCS: 71045; 84703; 87426; 93005; 99285; C9803

== ENCOUNTER 2022-11-20 18:24 | Emergency (ER) | payer MEDICAID, OTHER ==
[~2022-11-20] VITALS: Ht 165.1 cm; Wt 119.0 kg
[~2022-11-20 18:24] MED LIST changes: +ALBU6.7H3 INH
[2022-11-20] MEDS ORDERED: KETOROLAC 30MG/ML VIAL IV ONE (20:15)
[2022-11-20 23:05] LABS: CHLORIDE 112 mEq/L (98-107)
[2022-11-20 23:09] LABS: HCG SCREEN NEGATIVE
[2022-11-20] MEDS ORDERED: KETOROLAC 30MG/ML VIAL IV NR (23:30)
[2022-11-20 23:31] LABS: BASOPHILS % 0.4 % (0.0-2.0); EOSINOPHILS % 3.5 % (0.0-5.0); HEMATOCRIT. 35.1 % (36.0-48.0); HEMOGLOBIN. 11.1 g/dL (12.0-16.0); LYMPHOCYTES % 57.2 % (20.0-50.0); MEAN CORPUSCULAR HEMOGLOBIN 29.7 pg (28.0-32.0); MEAN CORPUSCULAR VOLUME 94.1 fL (81.0-99.0); MEAN PLATELET VOLUME 8.3 fl (7.4-10.4); MONOCYTES % 5.3 % (2.0-8.0); NEUTROPHILS % 33.6 % (40.0-76.0); PLATELET 399 x1000/uL (130-400); RED BLOOD CELL COUNT 3.73 mill/uL (4.2-5.4); RED CELL DISTRIBUTION WIDTH 16.4 % (11.6-14.6)
[2022-11-21 01:15] VITALS: BP 149/91
[2022-11-21] MEDS ORDERED: DIPHENHYDRAMINE 50MG/ML VIAL IM NR (01:15)
[2022-11-21] MEDS ORDERED: KETOROLAC 30MG/ML VIAL IM NR (01:15)
== END 2022-11-21 12:22 | disposition home or self-care (01) ==
LOC: ER 18:24
DX: R07.89 Other chest pain (principal); I10 Essential (primary) hypertension; J45.909 Unspecified asthma, uncomplicated; Z88.2 Allergy status to sulfonamides; Z79.899 Other long term (current) drug therapy; Z98.890 Other specified postprocedural states; Z90.49 Acquired absence of other specified parts of digestive tract
CPT/HCPCS: 36415; 70450; 71045; 80053; 84484; 84703; 85025; 93005; 96372; 96374; 99285; J1200; J1885; Z7610

== ENCOUNTER 2022-11-24 22:42 | Emergency (ER) | payer MEDICAID ==
[~2022-11-24] VITALS: Ht 152.4 cm; Wt 121.0 kg
[2022-11-25 02:15] LABS: CHLORIDE 112 mEq/L (98-107)
[2022-11-25 02:20] LABS: BASOPHILS % 0.7 % (0.0-2.0); EOSINOPHILS % 4.7 % (0.0-5.0); HCG SCREEN NEGATIVE; HEMATOCRIT. 33.9 % (36.0-48.0); HEMOGLOBIN. 10.8 g/dL (12.0-16.0); LYMPHOCYTES % 57.4 % (20.0-50.0); MEAN CORPUSCULAR HEMOGLOBIN 29.1 pg (28.0-32.0); MEAN PLATELET VOLUME 8.7 fl (7.4-10.4); MONOCYTES % 6.2 % (2.0-8.0); PLATELET 251 x1000/uL (130-400); RED BLOOD CELL COUNT 3.73 mill/uL (4.2-5.4); RED CELL DISTRIBUTION WIDTH 16.4 % (11.6-14.6)
[2022-11-25] MEDS ORDERED: KETOROLAC 15MG/ML VIAL IV ONE (02:30)
[2022-11-25] MEDS ORDERED: DIPHENHYDRAMINE 50MG/ML VIAL IM ONE (03:00)
[2022-11-25] MEDS ORDERED: ONDANSETRON 4MG ODT PO ONE (21:15)
[2022-11-25 23:01] VITALS: BP 147/86
== END 2022-11-25 23:10 | disposition home or self-care (01) ==
LOC: ER 22:42
DX: R07.89 Other chest pain (principal); M79.605 Pain in left leg; M79.604 Pain in right leg; Q05.9 Spina bifida, unspecified; G82.20 Paraplegia, unspecified; J45.909 Unspecified asthma, uncomplicated; Z98.890 Other specified postprocedural states
CPT/HCPCS: 36415; 71045; 80053; 83690; 83880; 84484; 84703; 85025; 93005; 96372; 96374; 99285; C1893; J1200; J1885; Q0162; Z7610

== ENCOUNTER 2022-12-07 22:09 | Inpatient (IN) | payer MEDICAID, OTHER ==
[~2022-12-07] VITALS: Ht 149.9 cm; Wt 112.5 kg
[2022-12-08 06:16] LABS: HEMATOCRIT. 36.3 % (36.0-48.0); MEAN CORPUSCULAR VOLUME 87.6 fL (81.0-99.0); MEAN PLATELET VOLUME 8.7 fl (7.4-10.4); PLATELET 462 x1000/uL (130-400); RED BLOOD CELL COUNT 4.14 mill/uL (4.2-5.4)
[2022-12-08 06:24] LABS: CHLORIDE 108 mEq/L (98-107)
[2022-12-08 07:51] LABS: PLATELET ESTIMATE SLIGHTLY INCREASED
[2022-12-08 14:00] VITALS: BP 138/78
[2022-12-08] MEDS ORDERED: ONDANSETRON HCL 4MG/2ML INJ IV PRN (14:15)
[2022-12-08] MEDS: ACETAMINOPHEN 325MG TABLET PO PRN ×2 (15:27→20:26)
[2022-12-08] MEDS: DIPHENHYDRAMINE 25MG CAPSULE PO PRN (15:27)
[2022-12-08 16:00] VITALS: BP 138/78
[2022-12-08] MEDS ORDERED: GABA-532 PO (16:22)
[2022-12-08] MEDS ORDERED: QUET200T PO (16:22)
[2022-12-08] MEDS ORDERED: ATOR10TA69 PO (16:22)
[2022-12-08] MEDS ORDERED: ARIP5TAB58 PO (16:22)
[2022-12-08] MEDS ORDERED: LORA10TA7 PO (16:22)
[2022-12-08 20:00] VITALS: BP 149/78
[2022-12-08 20:42] LABS: CLARITY URINE TURBID (CLEAR); COLOR URINE YELLOW (YELLOW); KETONES URINE TRACE (NEGATIVE); LEUKOCYTE ESTERASE URINE 3+ (NEGATIVE); NITRITE URINE POSITIVE (NEGATIVE); OCCULT BLOOD URINE 2+ (NEGATIVE); PH URINE 6.5 (4.5-8.0); PROTEIN URINE 2+ (NEGATIVE); SPECIFIC GRAVITY URINE 1.019 (1.005-1.030)
[2022-12-08] MEDS: PHENYTOIN SODIUM EXTENDED 100MG CAPSULE PO SCH ×2 (21:00→22:00)
[2022-12-08] MEDS ORDERED: DIPHENHYDRAMINE 50MG/ML VIAL IV PRN (22:15)
[2022-12-09] VITALS: BP 115/70
[2022-12-09] MEDS ORDERED: DIVALPROEX SODIUM 500MG DR TABLET PO NR (00:45)
[2022-12-09] MEDS ORDERED: GABAPENTIN 300MG CAPSULE PO NR (00:45)
[2022-12-09 04:00] VITALS: BP 107/62
[2022-12-09 08:01] VITALS: BP 118/92
[2022-12-09] MEDS: PHENYTOIN SODIUM EXTENDED 100MG CAPSULE PO SCH ×3 (09:04→16:10)
[2022-12-09] MEDS: GABAPENTIN 300MG CAPSULE PO SCH ×3 (09:04→16:10)
[2022-12-09] MEDS: DOCUSATE SODIUM 100MG CAPSULE PO SCH ×2 (09:05→16:10)
[2022-12-09] MEDS: DIPHENHYDRAMINE 25MG CAPSULE PO PRN ×2 (09:05→20:19)
[2022-12-09] MEDS: DIVALPROEX SODIUM 500MG DR TABLET PO SCH ×2 (09:05→16:09)
[2022-12-09] MEDS: FAMOTIDINE 20MG TABLET PO SCH ×2 (09:05→20:19)
[2022-12-09] MEDS ORDERED: MEROPENEM 1,000 MG in SODIUM CHLORIDE 0.9% 100 ML IV SCH (10:00)
[2022-12-09] MEDS: ONDANSETRON HCL 4MG TABLET PO PRN ×2 (10:19→20:19)
[2022-12-09 12:00] VITALS: BP 122/80
[2022-12-09] MEDS ORDERED: MEROPENEM-0.9% SODIUM CHLORIDE 100 ML IV SCH (15:00)
[2022-12-09 16:00] VITALS: BP 112/76
[2022-12-09] MEDS: MEROPENEM-0.9% SODIUM CHLORIDE 50 ML IV SCH ×2 (16:09→20:19)
[2022-12-09] MEDS: ACETAMINOPHEN 325MG TABLET PO PRN ×2 (16:10→22:23)
[2022-12-09 20:00] VITALS: BP 111/74
[2022-12-10] VITALS: BP 129/78
[2022-12-10 04:00] VITALS: BP 101/74
[2022-12-10] MEDS: MEROPENEM-0.9% SODIUM CHLORIDE 50 ML IV SCH ×3 (04:34→21:58)
[2022-12-10 08:00] VITALS: BP 116/68
[2022-12-10] MEDS: DIVALPROEX SODIUM 500MG DR TABLET PO SCH ×2 (08:38→16:59)
[2022-12-10] MEDS: DIPHENHYDRAMINE 25MG CAPSULE PO PRN ×2 (08:38→20:22)
[2022-12-10] MEDS: GABAPENTIN 300MG CAPSULE PO SCH ×3 (08:39→16:59)
[2022-12-10] MEDS: FAMOTIDINE 20MG TABLET PO SCH ×2 (08:39→20:22)
[2022-12-10] MEDS: PHENYTOIN SODIUM EXTENDED 100MG CAPSULE PO SCH ×3 (08:39→16:59)
[2022-12-10] MEDS: DOCUSATE SODIUM 100MG CAPSULE PO SCH ×2 (08:39→16:59)
[2022-12-10] MEDS: ACETAMINOPHEN 325MG TABLET PO PRN ×2 (09:23→15:18)
[2022-12-10 12:00] VITALS: BP 111/75
[2022-12-10 16:00] VITALS: BP 108/63
[2022-12-10 20:00] VITALS: BP 89/69
[2022-12-10] MEDS ORDERED: SODIUM CHLORIDE 0.9% 1,000 ML IV ONE (20:15)
[2022-12-10] MEDS ORDERED: NALOXONE HCL 0.4MG/ML VIAL IV PRN (21:00)
[2022-12-10] MEDS: HYDROCODONE/ACETAMINOPHEN 5/325MG TABLET PO PRN (21:05)
[2022-12-10] MEDS ORDERED: ONDANSETRON HCL 4MG/2ML INJ IV PRN (22:30)
[2022-12-11] VITALS: BP 90/61
[2022-12-11] MEDS: DIPHENHYDRAMINE 25MG CAPSULE PO PRN ×4 (00:07→23:39)
[2022-12-11] MEDS: IBUPROFEN 800MG TABLET PO PRN ×3 (00:08→17:50)
[2022-12-11 04:00] VITALS: BP 97/64
[2022-12-11] MEDS: MEROPENEM-0.9% SODIUM CHLORIDE 50 ML IV SCH ×3 (05:12→22:04)
[2022-12-11 08:00] VITALS: BP 131/78
[2022-12-11] MEDS: DOCUSATE SODIUM 100MG CAPSULE PO SCH ×2 (09:43→17:45)
[2022-12-11] MEDS: PHENYTOIN SODIUM EXTENDED 100MG CAPSULE PO SCH ×3 (09:43→17:45)
[2022-12-11] MEDS: GABAPENTIN 300MG CAPSULE PO SCH ×3 (09:44→17:45)
[2022-12-11] MEDS: DIVALPROEX SODIUM 500MG DR TABLET PO SCH ×2 (09:44→17:50)
[2022-12-11] MEDS: FAMOTIDINE 20MG TABLET PO SCH ×2 (09:44→22:04)
[2022-12-11] MEDS: ENOXAPARIN 40MG/0.4ML SYR SUBCUT SCH (09:55)
[2022-12-11 12:00] VITALS: BP 110/64
[2022-12-11 16:00] VITALS: BP 105/87
[2022-12-11 20:00] VITALS: BP 105/66
[2022-12-11] MEDS: HYDROCODONE/ACETAMINOPHEN 5/325MG TABLET PO PRN (23:45)
[2022-12-12] MEDS: IBUPROFEN 800MG TABLET PO PRN ×3 (01:35→17:40)
[2022-12-12] MEDS: MEROPENEM-0.9% SODIUM CHLORIDE 50 ML IV SCH ×2 (05:38→13:17)
[2022-12-12 08:00] VITALS: BP 99/58
[2022-12-12] MEDS: GABAPENTIN 300MG CAPSULE PO SCH ×3 (09:16→17:40)
[2022-12-12] MEDS: DOCUSATE SODIUM 100MG CAPSULE PO SCH ×2 (09:16→17:40)
[2022-12-12] MEDS: PHENYTOIN SODIUM EXTENDED 100MG CAPSULE PO SCH ×3 (09:16→17:39)
[2022-12-12] MEDS: DIVALPROEX SODIUM 500MG DR TABLET PO SCH ×2 (09:16→17:39)
[2022-12-12] MEDS: FAMOTIDINE 20MG TABLET PO SCH (09:17)
[2022-12-12] MEDS: ENOXAPARIN 40MG/0.4ML SYR SUBCUT SCH (09:17)
[2022-12-12 12:00] VITALS: BP 109/59
[2022-12-12 14:13] VITALS: BP 98/59
[2022-12-12 16:00] VITALS: BP 105/62
[2022-12-12] MEDS: DIPHENHYDRAMINE 25MG CAPSULE PO PRN (17:39)
== END 2022-12-12 18:19 | disposition home health service (06) | DRG 463 ==
LOC: ER 22:09 → 7WST 12-08 08:38 → EDBEDREQTM 12-08 08:57 → EDBEDREQ 12-08 08:57 → 6EST 12-11 21:15
PROVIDERS: ADMIT Internal Medicine; ATTEND Internal Medicine
PROC: 02HV33Z Insertion of Infusion Device into Superior Vena Cava, Percutaneous Approach (ICD-10-PCS; principal; 2022-12-09)
PROC: B548ZZA Ultrasonography of Superior Vena Cava, Guidance (ICD-10-PCS; 2022-12-09)
DX: N39.0 Urinary tract infection, site not specified (principal); E43 Unspecified severe protein-calorie malnutrition; G40.909 Epilepsy, unspecified, not intractable, without status epilepticus; R40.0 Somnolence; Z20.822 Contact with and (suspected) exposure to COVID-19; I10 Essential (primary) hypertension; B96.20 Unspecified Escherichia coli [E. coli] as the cause of diseases classified elsewhere; Z86.19 Personal history of other infectious and parasitic diseases; Z86.73 Personal history of transient ischemic attack (TIA), and cerebral infarction without residual deficits; Z88.2 Allergy status to sulfonamides; Z68.43 Body mass index [BMI] 50.0-59.9, adult; Z90.49 Acquired absence of other specified parts of digestive tract; Z79.899 Other long term (current) drug therapy; Z88.8 Allergy status to other drugs, medicaments and biological substances
CPT/HCPCS: 36415; 36573; 71045; 80053; 81003; 83880; 84145; 84484; 85025; 85379; 87077; 87186; 87426; 93005; 93306; 93970; 99285; A6261; C1725; C1769; J1200; J1650; J2185; J2405; J7050; Q0162; Q0163

== ENCOUNTER 2022-12-26 14:38 | Emergency (ER) | payer MEDICAID, OTHER ==
[~2022-12-26] VITALS: Ht 170.2 cm; Wt 95.0 kg
[~2022-12-26 14:38] MED LIST changes: +ARIP5TAB58 PO; +ATOR10TA69 PO; +LORA10TA7 PO; +QUET200T PO
[2022-12-26] MEDS ORDERED: IBUPROFEN 600MG TABLET PO STA (14:59)
[2022-12-26 15:26] VITALS: BP 179/103
[2022-12-26 17:15] LABS: CLARITY URINE CLOUDY (CLEAR); COLOR URINE DARK YELLOW (YELLOW); KETONES URINE TRACE (NEGATIVE); LEUKOCYTE ESTERASE URINE 1+ (NEGATIVE); NITRITE URINE NEGATIVE (NEGATIVE); OCCULT BLOOD URINE NEGATIVE (NEGATIVE); PROTEIN URINE TRACE (NEGATIVE); SPECIFIC GRAVITY URINE 1.023 (1.005-1.030)
[2022-12-26 18:37] LABS: BASOPHILS % 0.5 % (0.0-2.0); EOSINOPHILS % 8.3 % (0.0-5.0); HEMATOCRIT. 46.1 % (36.0-48.0); HEMOGLOBIN. 14.6 g/dL (12.0-16.0); LYMPHOCYTES % 50.1 % (20.0-50.0); MEAN CORPUSCULAR HEMOGLOBIN 29.6 pg (28.0-32.0); MEAN CORPUSCULAR VOLUME 93.5 fL (81.0-99.0); MEAN PLATELET VOLUME 9.1 fl (7.4-10.4); MONOCYTES % 6.6 % (2.0-8.0); NEUTROPHILS % 34.5 % (40.0-76.0); PLATELET 118 x1000/uL (130-400); RED BLOOD CELL COUNT 4.94 mill/uL (4.2-5.4); RED CELL DISTRIBUTION WIDTH 17.8 % (11.6-14.6)
[2022-12-26 18:41] LABS: CHLORIDE 110 mEq/L (98-107)
[2022-12-26 18:49] LABS: HCG SCREEN NEGATIVE
[2022-12-26] MEDS ORDERED: DIPHENHYDRAMINE 25MG CAPSULE PO ONE (20:15)
[2022-12-26] MEDS ORDERED: NEOM28.37 TP (23:28)
[2022-12-28] MEDS ORDERED: POLY119P2 MT (23:12)
== END 2022-12-27 09:56 | disposition home or self-care (01) ==
LOC: ER 15:09
DX: R07.89 Other chest pain (principal); R51.9 Headache, unspecified; Z86.73 Personal history of transient ischemic attack (TIA), and cerebral infarction without residual deficits; Z90.49 Acquired absence of other specified parts of digestive tract; Z79.899 Other long term (current) drug therapy
CPT/HCPCS: 36415; 70450; 71045; 80053; 81003; 84484; 84703; 85025; 93005; 99285; Q0163; Z7610

== ENCOUNTER 2022-12-28 18:34 | Emergency (ER) | payer MEDICAID, OTHER ==
[~2022-12-28] VITALS: Ht 149.9 cm; Wt 160.0 kg
[~2022-12-28 18:34] MED LIST changes: +NEOM28.37 TP
[2022-12-28 18:48] VITALS: BP 162/90
[2022-12-28] MEDS ORDERED: FAMOTIDINE 20MG TABLET PO ONE (20:00)
[2022-12-28] MEDS ORDERED: MAGNESIUM/ALUMINUM HYDROXIDE/SIMETHICONE 30ML UDC PO ONE (20:00)
[2022-12-28] MEDS ORDERED: VISCOUS LIDOCAINE 2% 15 ML UDC PO STA (20:00)
[2022-12-28] MEDS ORDERED: ONDANSETRON 4MG ODT PO ONE (20:00)
[2022-12-28] MEDS ORDERED: ONDANSETRON HCL 4MG/2ML INJ IV STA (20:17)
[2022-12-28] MEDS ORDERED: SODIUM CHLORIDE 0.9% 1,000 ML IV ONE (20:30)
[2022-12-28] MEDS ORDERED: FAMOTIDINE 20MG/2ML VIAL IV ONE (20:30)
[2022-12-28] MEDS ORDERED: DIPHENHYDRAMINE 50MG/ML VIAL IV ONE (20:30)
[2022-12-28 21:48] LABS: BASOPHILS % 0.6 % (0.0-2.0); EOSINOPHILS % 2.5 % (0.0-5.0); HEMATOCRIT. 41.3 % (36.0-48.0); HEMOGLOBIN. 13.6 g/dL (12.0-16.0); LYMPHOCYTES % 35.5 % (20.0-50.0); MEAN CORPUSCULAR HEMOGLOBIN 30.1 pg (28.0-32.0); MEAN CORPUSCULAR VOLUME 91.4 fL (81.0-99.0); MEAN PLATELET VOLUME 9.5 fl (7.4-10.4); MONOCYTES % 8.7 % (2.0-8.0); NEUTROPHILS % 52.7 % (40.0-76.0); PLATELET 212 x1000/uL (130-400); RED BLOOD CELL COUNT 4.52 mill/uL (4.2-5.4); RED CELL DISTRIBUTION WIDTH 17.3 % (11.6-14.6)
[2022-12-28 21:51] LABS: CHLORIDE 109 mEq/L (98-107)
[2022-12-28 21:59] LABS: HCG SCREEN NEGATIVE
[2022-12-28] MEDS ORDERED: MAGNESIUM/ALUMINUM HYDROXIDE/SIMETHICONE 30ML UDC PO NR (22:30)
[2022-12-28] MEDS ORDERED: DIPHENHYDRAMINE 50MG/ML VIAL IV NR (22:30)
[2022-12-28] MEDS ORDERED: ONDANSETRON HCL 4MG/2ML INJ IV NR (22:30)
[2022-12-28] MEDS ORDERED: VISCOUS LIDOCAINE 2% 15 ML UDC PO NR (22:30)
[2022-12-28] MEDS ORDERED: FAMOTIDINE 20MG/2ML VIAL IV NR (22:30)
[2022-12-28] MEDS ORDERED: POLY119P2 MT (23:12)
[2022-12-29 00:18] LABS: CLARITY URINE TURBID (CLEAR); COLOR URINE DARK YELLOW (YELLOW); KETONES URINE 1+ (NEGATIVE); LEUKOCYTE ESTERASE URINE 3+ (NEGATIVE); NITRITE URINE NEGATIVE (NEGATIVE); OCCULT BLOOD URINE NEGATIVE (NEGATIVE); PH URINE 7.5 (4.5-8.0); PROTEIN URINE 2+ (NEGATIVE); SPECIFIC GRAVITY URINE 1.027 (1.005-1.030)
[2022-12-29] MEDS ORDERED: NITR-87 MT (01:02)
== END 2022-12-29 12:06 | disposition home or self-care (01) ==
LOC: ER 18:34
DX: N39.0 Urinary tract infection, site not specified (principal); Z90.49 Acquired absence of other specified parts of digestive tract; Z88.6 Allergy status to analgesic agent; Z79.899 Other long term (current) drug therapy; Z86.73 Personal history of transient ischemic attack (TIA), and cerebral infarction without residual deficits; Z98.890 Other specified postprocedural states
CPT/HCPCS: 36415; 71045; 74018; 80053; 81003; 83690; 84703; 85025; 96361; 96374; 96375; 99285; C1893; J1200; J2405; J3490; J7030; Z7610

== ENCOUNTER 2023-01-03 01:24 | Emergency (ER) | payer MEDICAID ==
[~2023-01-03] VITALS: Ht 170.2 cm; Wt 106.0 kg
[~2023-01-03 01:24] MED LIST changes: +NITR-87 MT; +POLY119P2 MT
[2023-01-03] MEDS ORDERED: ACETAMINOPHEN 325MG TABLET PO ONE (01:45)
[2023-01-03] MEDS ORDERED: HYDROCODONE/ACETAMINOPHEN 5/325MG TABLET PO ONE (02:00)
[2023-01-03] MEDS ORDERED: DIPHENHYDRAMINE 25MG CAPSULE PO ONE (02:00)
[2023-01-03] MEDS ORDERED: ONDANSETRON 4MG ODT PO ONE (02:00)
[2023-01-03] MEDS ORDERED: IBUP-2029 MT (02:40)
[2023-01-03] MEDS ORDERED: ONDA4TAB50 MT (02:40)
[2023-01-03 11:26] VITALS: BP 134/98
== END 2023-01-03 11:40 | disposition home or self-care (01) ==
LOC: ER 01:24
DX: M25.561 Pain in right knee (principal); Z88.6 Allergy status to analgesic agent; Z91.040 Latex allergy status; Z88.5 Allergy status to narcotic agent; Z13.9 Encounter for screening, unspecified
CPT/HCPCS: 73562; 81025; 93971; 99284; C1893; Q0162; Z7610; Q0163

== ENCOUNTER 2023-02-01 00:50 | Emergency (ER) | payer MEDICAID, OTHER ==
[~2023-02-01] VITALS: Ht 149.9 cm; Wt 117.9 kg
[~2023-02-01 00:50] MED LIST changes: -CIPR-263 MT; +IBUP-2029 MT; -NITR-87 MT
[2023-02-01] MEDS ORDERED: MORPHINE SULFATE 10 MG/ML CPJ IM ONE (02:00)
[2023-02-01] MEDS ORDERED: DIPHENHYDRAMINE 50MG/ML VIAL IM ONE (02:00)
[2023-02-01 15:36] VITALS: BP 126/74
== END 2023-02-01 16:02 | disposition home or self-care (01) ==
LOC: ER 00:50
DX: N83.201 Unspecified ovarian cyst, right side (principal); R10.2 Pelvic and perineal pain; F41.9 Anxiety disorder, unspecified; F32.A Depression, unspecified; I10 Essential (primary) hypertension; Z88.5 Allergy status to narcotic agent; Z88.1 Allergy status to other antibiotic agents; Z91.040 Latex allergy status; Z86.73 Personal history of transient ischemic attack (TIA), and cerebral infarction without residual deficits; Z90.89 Acquired absence of other organs
CPT/HCPCS: 96372; 99284; J1200; J2270; Z7610

== ENCOUNTER 2023-02-05 19:49 | Emergency (ER) | payer MEDICAID ==
[~2023-02-05] VITALS: Ht 170.2 cm; Wt 91.0 kg
[2023-02-05] MEDS ORDERED: MORPHINE SULFATE 10 MG/ML CPJ IM ONE (20:00)
[2023-02-05] MEDS ORDERED: ONDANSETRON 4MG ODT PO ONE (20:00)
[2023-02-05] MEDS ORDERED: DIPHENHYDRAMINE 25MG CAPSULE PO ONE (20:00)
[2023-02-05 23:33] LABS: BASOPHILS % 0.4 % (0.0-2.0); EOSINOPHILS % 3.6 % (0.0-5.0); HEMATOCRIT. 44.1 % (36.0-48.0); HEMOGLOBIN. 14.3 g/dL (12.0-16.0); LYMPHOCYTES % 37.8 % (20.0-50.0); MEAN CORPUSCULAR HEMOGLOBIN 29.9 pg (28.0-32.0); MEAN PLATELET VOLUME 8.6 fl (7.4-10.4); MONOCYTES % 10.2 % (2.0-8.0); PLATELET 335 x1000/uL (130-400); RED BLOOD CELL COUNT 4.79 mill/uL (4.2-5.4); RED CELL DISTRIBUTION WIDTH 14.9 % (11.6-14.6)
[2023-02-05 23:40] LABS: CHLORIDE 106 mEq/L (98-107)
[2023-02-05 23:46] LABS: HCG SCREEN NEGATIVE
[2023-02-06 02:00] VITALS: BP 113/87
[2023-02-06] MEDS: DIPHENHYDRAMINE 25MG CAPSULE PO NR ×2 (02:00→02:48)
[2023-02-06] MEDS: MORPHINE SULFATE 10 MG/ML CPJ IM NR ×2 (02:00→02:48)
[2023-02-06] MEDS: ONDANSETRON 4MG ODT PO NR ×2 (02:00→02:48)
== END 2023-02-06 10:43 | disposition home or self-care (01) ==
LOC: ER 19:49
DX: R10.84 Generalized abdominal pain (principal); F41.9 Anxiety disorder, unspecified; F32.9 Major depressive disorder, single episode, unspecified; I10 Essential (primary) hypertension; Z86.73 Personal history of transient ischemic attack (TIA), and cerebral infarction without residual deficits; Z79.899 Other long term (current) drug therapy
CPT/HCPCS: 36415; 74176; 76856; 80053; 84703; 85025; 96372; 99285; J2270; Q0162; Q0163

== ENCOUNTER 2023-02-08 01:31 | Emergency (ER) | payer MEDICAID ==
[~2023-02-08] VITALS: Ht 149.9 cm; Wt 91.0 kg
[2023-02-08] MEDS ORDERED: DIPHENHYDRAMINE 50MG/ML VIAL IM ONE (02:15)
[2023-02-08] MEDS ORDERED: METOCLOPRAMIDE HCL 10MG/2ML VIAL IM ONE (02:15)
[2023-02-08] MEDS ORDERED: METO5TAB86 MT (02:38)
[2023-02-08 09:00] VITALS: BP 150/99
== END 2023-02-08 09:56 | disposition home or self-care (01) ==
LOC: ER 01:31
DX: R11.2 Nausea with vomiting, unspecified (principal); G89.29 Other chronic pain; R10.2 Pelvic and perineal pain; I10 Essential (primary) hypertension; Z88.5 Allergy status to narcotic agent; Z88.2 Allergy status to sulfonamides; Z91.040 Latex allergy status; Z79.899 Other long term (current) drug therapy; Z86.73 Personal history of transient ischemic attack (TIA), and cerebral infarction without residual deficits; Z86.59 Personal history of other mental and behavioral disorders; Z90.49 Acquired absence of other specified parts of digestive tract; Z98.890 Other specified postprocedural states
CPT/HCPCS: 96372; 99284; C1893; J1200; J2765

== ENCOUNTER 2023-02-09 19:02 | Emergency (ER) | payer MEDICAID, OTHER ==
[~2023-02-09] VITALS: Ht 149.9 cm; Wt 63.0 kg
[~2023-02-09 19:02] MED LIST changes: +METO5TAB86 MT
[2023-02-09] MEDS ORDERED: KETOROLAC 60MG/2ML VIAL IM STA (20:08)
[2023-02-09] MEDS ORDERED: DIPHENHYDRAMINE 25MG CAPSULE PO ONE (22:15)
[2023-02-10] MEDS ORDERED: KETOROLAC 30MG/ML VIAL IM STA (04:20)
[2023-02-10] MEDS ORDERED: DIPHENHYDRAMINE 25MG CAPSULE PO ONE (04:30)
[2023-02-10 10:27] VITALS: BP 136/90
== END 2023-02-10 10:28 | disposition home or self-care (01) ==
LOC: ER 19:02
DX: R19.00 Intra-abdominal and pelvic swelling, mass and lump, unspecified site (principal); I10 Essential (primary) hypertension; Z88.6 Allergy status to analgesic agent; Z88.5 Allergy status to narcotic agent; Z91.040 Latex allergy status; Z79.899 Other long term (current) drug therapy
CPT/HCPCS: 96372; 99284; J1885; Q0163; Z7610

== ENCOUNTER 2023-02-22 10:35 | Emergency (ER) | payer MEDICAID ==
[~2023-02-22] VITALS: Ht 149.9 cm; Wt 100.0 kg
[~2023-02-22 10:35] MED LIST changes: -ALBU6.7H3 INH; +CIPR-263 MT; -IBUP-2029 MT; -NEOM28.37 TP; -ONDA4TAB50 MT; -POLY119P2 MT
[2023-02-22] MEDS ORDERED: ONDANSETRON 4MG ODT PO ONE (11:15)
[2023-02-22 11:47] LABS: BASOPHILS % 0.4 % (0.0-2.0); EOSINOPHILS % 2.6 % (0.0-5.0); HEMATOCRIT. 40.6 % (36.0-48.0); HEMOGLOBIN. 13.3 g/dL (12.0-16.0); LYMPHOCYTES % 49.3 % (20.0-50.0); MEAN CORPUSCULAR HEMOGLOBIN 29.4 pg (28.0-32.0); MEAN CORPUSCULAR VOLUME 89.9 fL (81.0-99.0); MEAN PLATELET VOLUME 9.1 fl (7.4-10.4); MONOCYTES % 9.3 % (2.0-8.0); NEUTROPHILS % 38.4 % (40.0-76.0); PLATELET 208 x1000/uL (130-400); RED BLOOD CELL COUNT 4.52 mill/uL (4.2-5.4); RED CELL DISTRIBUTION WIDTH 14.1 % (11.6-14.6)
[2023-02-22 11:49] LABS: CHLORIDE 110 mEq/L (98-107)
[2023-02-22] MEDS ORDERED: DIPHENHYDRAMINE 50MG/ML VIAL IM ONE (13:30)
[2023-02-22] MEDS ORDERED: HALOPERIDOL LACTATE 5MG/ML VIAL IM ONE (13:30)
[2023-02-22] MEDS ORDERED: METOCLOPRAMIDE HCL 10MG/2ML VIAL IM ONE (13:30)
[2023-02-22 16:14] LABS: CLARITY URINE TURBID (CLEAR); COLOR URINE DARK YELLOW (YELLOW); KETONES URINE 1+ (NEGATIVE); LEUKOCYTE ESTERASE URINE 2+ (NEGATIVE); NITRITE URINE NEGATIVE (NEGATIVE); OCCULT BLOOD URINE NEGATIVE (NEGATIVE); PROTEIN URINE TRACE (NEGATIVE); SPECIFIC GRAVITY URINE 1.024 (1.005-1.030)
[2023-02-22] MEDS ORDERED: FLUCONAZOLE 100MG TABLET PO STA (18:17)
[2023-02-22] MEDS ORDERED: CEFP200T13 MT (18:25)
[2023-02-22] MEDS ORDERED: FLUC200T51 MT (18:25)
[2023-02-22] MEDS ORDERED: CEFTRIAXONE SODIUM 1 G/VIAL IM ONE (18:30)
[2023-02-23] MEDS ORDERED: CEFTRIAXONE SODIUM 1 G/VIAL IM NR (01:45)
[2023-02-23 03:50] VITALS: BP 120/70
== END 2023-02-23 04:00 | disposition home or self-care (01) ==
LOC: ER 10:35
DX: R11.2 Nausea with vomiting, unspecified (principal); I10 Essential (primary) hypertension; Z91.040 Latex allergy status; Z88.5 Allergy status to narcotic agent; Z88.2 Allergy status to sulfonamides; Z90.49 Acquired absence of other specified parts of digestive tract; Z86.73 Personal history of transient ischemic attack (TIA), and cerebral infarction without residual deficits; Z86.59 Personal history of other mental and behavioral disorders; Z79.899 Other long term (current) drug therapy
CPT/HCPCS: 36415; 74176; 80053; 81003; 83690; 85025; 96372; 99285; J0696; J1200; J1630; J2765; Q0162

== ENCOUNTER 2023-04-29 10:32 | Inpatient (IN) | payer OTHER ==
[2023-04-29] VITALS (21 sets, daily range): BP systolic 49–177; BP diastolic 21–100; PULSE 75–124; RESP 15–25; TEMP 96.9; O2SAT 98
[~2023-04-29] VITALS: Ht 167.6 cm; Wt 100.0 kg
[~2023-04-29 10:32] MED LIST changes: -CIPR-263 MT; +NITR-87 MT; +ONDA4TAB50 MT; +TOPUD MT
[2023-04-29] MEDS ORDERED: DEXTROSE 50% WATER 50ML SYRINGE IV ONE (10:45)
[2023-04-29] MEDS ORDERED: DEXTROSE 50% WATER 50ML SYRINGE IV SCH (10:45)
[2023-04-29] MEDS ORDERED: SODIUM CHLORIDE 0.9% 1000ML BAG (SEPSIS BOLUS) IV ONE (11:45)
[2023-04-29] MEDS ORDERED: VANCOMYCIN 1G PREMIX 200 ML IV ONE (11:45)
[2023-04-29] MEDS ORDERED: PIPERACILLIN/TAZ 3.375G PREMIX 50 ML IV ONE (11:45)
[2023-04-29 12:08] LABS: BG BASE EXCESS -3.3 mmol/L (-2.0-2.0); BG CARBOXYHEMOGLOBIN 0.1 % (0.5-1.5); BG DEOXYHEMOGLOBIN 0.4 % (0.0-5.0); BG FRACTION INSPIRED OXYGEN 100; BG METHEMOGLOBIN 0.2 % (0.0-1.5); BG OXYGEN SATURATION 99.6 % (92.0-98.5); BG OXYHEMOGLOBIN 99.3 % (94.0-97.0); BG PCO2 35.3 mmHg (35.0-45.0); BG PH 7.392 (7.350-7.450); BG PO2 388.5 mmHg (75.0-100.0); BG SAMPLE SITE LEFT RADIAL; BG TOTAL HEMOGLOBIN 12.5 g/dL (12.0-18.0); BG VENT MODE MASK - NRB
[2023-04-29 12:15] LABS: CHLORIDE 111 mEq/L (98-107); INDEX HEMOLYSI 1 (1-3); INDEX ICTERIC 1 (1-4); INDEX LIPEMIC 1 (1-3); POTASSIUM 3.3 mEq/L (3.5-5.1); SODIUM 146 mEq/L (136-145)
[2023-04-29 12:18] LABS: HEMATOCRIT. 39.9 % (36.0-48.0); HEMOGLOBIN. 13.1 g/dL (12.0-16.0); MEAN CORPUSCULAR HEMOGLOBIN 28.9 pg (28.0-32.0); MEAN CORPUSCULAR HGB CONC 32.7 g/dL (31.0-37.0); MEAN CORPUSCULAR VOLUME 88.4 fL (81.0-99.0); RED BLOOD CELL COUNT 4.52 mill/uL (4.2-5.4); RED CELL DISTRIBUTION WIDTH 15.9 % (11.6-14.6)
[2023-04-29 12:24] LABS: ALANINE AMINOTRANSFERASE 79 IU/L (13-61); ALBUMIN 1.6 g/dL (3.4-5.0); ASPARTATE AMINOTRANSFERASE 54 IU/L (15-37); BILIRUBIN TOTAL 2.1 mg/dL (0.1-1.0); CALCIUM 8.2 mg/dL (8.5-10.1); CARBON DIOXIDE 21 mEq/L (21-32); CREATININE 2.3 mg/dL (0.6-1.3); ETHANOL BLOOD < 10 mg/dL (-10); GLUCOSE 202 mg/dL (70-105); NT PRO B-TYPE NATRIURETIC PEP 1499 pg/mL (5-125); PROTEIN TOTAL 5.8 g/dL (6.0-8.3); TROPONIN I HIGH SENSITIVITY 10 ng/L (<54); UREA NITROGEN BLOOD 42 mg/dL (7-21)
[2023-04-29 12:44] LABS: D-DIMER 1.78 mg/L FEU (<0.50); INR 1.8; PROTHROMBIN TIME 18.3 sec (9.6-11.0)
[2023-04-29 12:45] LABS: LACTIC ACID 10.9 mmol/L (0.4-2.0)
[2023-04-29 12:49] LABS: HCG SCREEN NEGATIVE
[2023-04-29 13:01] LABS: DIFFERENTIAL COMMENT 1
[2023-04-29 13:46] LABS: PLATELET 249 x1000/uL (130-400)
[2023-04-29 13:54] LABS: NUCLEATED RED BLOOD CELLS 35 /100 WBC; PLATELET ESTIMATE NORMAL
[2023-04-29 13:55] LABS: TARGET CELLS 1+
[2023-04-29 13:58] LABS: TROPONIN I HIGH SENSITIVITY 8 ng/L (<54)
[2023-04-29] MEDS: NOREPINEPHRINE 8MG/250ML PMX 250 ML IV SCH ×2 (14:44→22:16)
[2023-04-29] MEDS ORDERED: VANCOMYCIN 1G PREMIX 200 ML IV NR ×2 (15:00→22:30)
[2023-04-29] MEDS: ONDANSETRON HCL 4MG/2ML INJ IV PRN ×2 (16:46→22:14)
[2023-04-29] MEDS ORDERED: LEVETIRACETAM 500 MG in SODIUM CHLORIDE 0.9% 100 ML IV SCH (20:45)
[2023-04-29] MEDS ORDERED: DEXT 5%/0.45% NACL 1000ML 1,000 ML IV SCH (20:45)
[2023-04-29] MEDS ORDERED: NOREPINEPHRINE 8 MG in DEXT 5% WATER 242 ML IV PRN (22:00)
[2023-04-29] MEDS: PANTOPRAZOLE SODIUM 40 MG/VIAL IV SCH (22:14)
[2023-04-29] MEDS: LEVETIRACETAM 500MG PREMIX 100 ML IV SCH (22:14)
[2023-04-29] MEDS ORDERED: SODIUM CHLORIDE 0.9% 500 ML IV ONE (22:15)
[2023-04-29] MEDS: PIPERACILLIN/TAZOBACTAM 3.375 G in DEXTROSE 5% WATER 50 ML IV SCH (22:22)
[2023-04-29] MEDS: NOREPINEPHRINE 8MG/250ML PMX 250ML IV PRN ×2 (22:24→23:48)
[2023-04-29 22:26] LABS: POTASSIUM 3.3 mEq/L (3.5-5.1)
[2023-04-29 22:27] LABS: CALCIUM 7.8 mg/dL (8.5-10.1)
[2023-04-29 22:32] LABS: CREATININE 2.4 mg/dL (0.6-1.3)
[2023-04-29 22:34] LABS: HEMATOCRIT. 40.7 % (36.0-48.0); HEMOGLOBIN. 13.4 g/dL (12.0-16.0); MEAN CORPUSCULAR HEMOGLOBIN 28.4 pg (28.0-32.0); MEAN CORPUSCULAR HGB CONC 32.9 g/dL (31.0-37.0); MEAN CORPUSCULAR VOLUME 86.4 fL (81.0-99.0); MEAN PLATELET VOLUME 9.7 fl (7.4-10.4); PLATELET 243 x1000/uL (130-400); RED BLOOD CELL COUNT 4.71 mill/uL (4.2-5.4); RED CELL DISTRIBUTION WIDTH 16.1 % (11.6-14.6); WHITE BLOOD COUNT 16.3 x1000/uL (4.5-11.0)
[2023-04-29 22:35] LABS: DIFFERENTIAL COMMENT 1
[2023-04-29 23:53] LABS: NUCLEATED RED BLOOD CELLS 32 /100 WBC
[2023-04-29 23:54] LABS: ANISOCYTOSIS 1+; HYPOCHROMASIA 1+; OVALOCYTES 1+; PLATELET ESTIMATE NORMAL; TARGET CELLS 1+
[2023-04-30] VITALS (100 sets, daily range): BP systolic 32–203; BP diastolic 16–81; PULSE 106–129; RESP 12–37; TEMP 97.2–98.2
[2023-04-30] MEDS ORDERED: KCL 20MEQ/100ML PREMIX 100 ML IV NR
[2023-04-30] MEDS: PHENYLEPHRINE 50 MG in DEXT 5% WATER 245 ML IV PRN ×2 (00:39→04:06)
[2023-04-30] MEDS: VASOPRESSIN 20 UNIT in SODIUM CHLORIDE 0.9% 99 ML IV PRN ×3 (01:58→22:24)
[2023-04-30] MEDS: NOREPINEPHRINE 32 MG in DEXT 5% WATER 218 ML IV PRN ×4 (02:17→19:00)
[2023-04-30] MEDS: PIPERACILLIN/TAZOBACTAM 3.375 G in DEXTROSE 5% WATER 50 ML IV SCH (05:07)
[2023-04-30 06:33] LABS: BG BASE EXCESS -20.4 mmol/L (-2.0-2.0); BG CARBOXYHEMOGLOBIN 0.3 % (0.5-1.5); BG DEOXYHEMOGLOBIN 2.8 % (0.0-5.0); BG FRACTION INSPIRED OXYGEN 100; BG HCO3 ACT 5.5 mmol/L (22.0-26.0); BG METHEMOGLOBIN 0.3 % (0.0-1.5); BG OXYGEN SATURATION 97.2 % (92.0-98.5); BG OXYHEMOGLOBIN 96.6 % (94.0-97.0); BG PCO2 14.7 mmHg (35.0-45.0); BG PH 7.189 (7.350-7.450); BG PO2 118.6 mmHg (75.0-100.0); BG SAMPLE SITE RIGHT RADIAL; BG TOTAL HEMOGLOBIN 12.6 g/dL (12.0-18.0); BG VENT MODE MASK - NRB
[2023-04-30] MEDS ORDERED: SODIUM BICARBONATE 8.4% 1 MEQ/ML 50ML SYR IV NR ×3 (07:30→22:30)
[2023-04-30] MEDS ORDERED: HYDROCORTISONE SOD SUCCINATE 100 MG/2 ML VIAL IV SCH (08:15)
[2023-04-30] MEDS: PANTOPRAZOLE SODIUM 40 MG/VIAL IV SCH (08:24)
[2023-04-30] MEDS: LEVETIRACETAM 500MG PREMIX 100 ML IV SCH ×2 (08:25→21:21)
[2023-04-30] MEDS ORDERED: SODIUM BICARBONATE 100 MEQ in DEXTROSE 5% WATER 1,000 ML IV SCH (09:00)
[2023-04-30 09:23] LABS: CLARITY URINE TURBID (CLEAR); COLOR URINE DARK YELLOW (YELLOW); GLUCOSE URINE NEGATIVE (NEGATIVE); KETONES URINE NEGATIVE (NEGATIVE); LEUKOCYTE ESTERASE URINE 3+ (NEGATIVE); NITRITE URINE POSITIVE (NEGATIVE); OCCULT BLOOD URINE 3+ (NEGATIVE); PH URINE 5.5 (4.5-8.0); PROTEIN URINE 3+ (NEGATIVE); SPECIFIC GRAVITY URINE 1.017 (1.005-1.030)
[2023-04-30 09:44] LABS: BACTERIA URINE 4+; SQUAMOUS EPITHELIAL CELL URINE 3+ /lpf (RARE/1+)
[2023-04-30] MEDS ORDERED: LIDOCAINE HCL 1% 20ML VIAL (Pyxis) INJ INFIL NR (09:45)
[2023-04-30 09:46] LABS: *AMPHETAMINES SCREEN URINE NEGATIVE (NEGATIVE); *BARBITURATES SCREEN URINE NEGATIVE (NEGATIVE); *BENZODIAZEPINES SCREEN URINE NEGATIVE (NEGATIVE); *COCAINE SCREEN URINE NEGATIVE (NEGATIVE); CANNABINOID URINE SCREEN NEGATIVE (NEGATIVE); ECSTASY MDMA SCREEN URINE NEGATIVE (NEGATIVE); METHADONE URINE SCREEN NEGATIVE (NEGATIVE); OPIATES URINE SCREEN NEGATIVE (NEGATIVE); PHENCYCLIDINE URINE SCREEN NEGATIVE (NEGATIVE)
[2023-04-30 09:47] LABS: YEAST URINE 2+
[2023-04-30 09:48] LABS: RBC URINE NONE SEEN /hpf (0-2)
[2023-04-30] MEDS ORDERED: FENTANYL 2500MCG/250ML PMX 250 ML IV ONE (11:30)
[2023-04-30] MEDS ORDERED: FENTANYL CITRATE 2,500 MCG in SODIUM CHLORIDE 0.9% 200 ML IV PRN (11:30)
[2023-04-30] MEDS ORDERED: ENOXAPARIN 40MG/0.4ML SYR SUBCUT SCH (12:00)
[2023-04-30 12:30] LABS: BG BASE EXCESS -21.5 mmol/L (-2.0-2.0); BG CARBOXYHEMOGLOBIN 0.3 % (0.5-1.5); BG DEOXYHEMOGLOBIN 3.8 % (0.0-5.0); BG HCO3 ACT 6.1 mmol/L (22.0-26.0); BG METHEMOGLOBIN 0.1 % (0.0-1.5); BG OXYGEN SATURATION 96.2 % (92.0-98.5); BG OXYHEMOGLOBIN 95.8 % (94.0-97.0); BG PCO2 19.8 mmHg (35.0-45.0); BG PO2 104.4 mmHg (75.0-100.0); BG SAMPLE SITE ALINE; BG TOTAL HEMOGLOBIN 12.7 g/dL (12.0-18.0); BG VENT MODE VENT - AC
[2023-04-30] MEDS: MEROPENEM 1,000 MG in SODIUM CHLORIDE 0.9% 100 ML IV SCH ×2 (13:57→21:49)
[2023-04-30] MEDS: PHENYLEPHRINE 100 MG in DEXT 5% WATER 250 ML IV PRN ×2 (14:17→18:59)
[2023-04-30] MEDS: HYDROCORTISONE SOD SUCCINATE 100 MG/2 ML VIAL IV SCH ×2 (16:06→22:24)
[2023-04-30 17:16] LABS: BG BASE EXCESS -14.8 mmol/L (-2.0-2.0); BG CARBOXYHEMOGLOBIN 0.5 % (0.5-1.5); BG DEOXYHEMOGLOBIN 0.6 % (0.0-5.0); BG FRACTION INSPIRED OXYGEN 100; BG HCO3 ACT 9.8 mmol/L (22.0-26.0); BG METHEMOGLOBIN 0.2 % (0.0-1.5); BG OXYGEN SATURATION 99.4 % (92.0-98.5); BG OXYHEMOGLOBIN 98.7 % (94.0-97.0); BG PH 7.285 (7.350-7.450); BG SAMPLE SITE ALINE; BG TOTAL HEMOGLOBIN 12.5 g/dL (12.0-18.0); BG VENT MODE VENT - AC
[2023-04-30] MEDS: EPINEPHRINE 10 MG in SODIUM CHLORIDE 0.9% 240 ML IV PRN ×4 (17:16→23:26)
[2023-04-30] MEDS ORDERED: VANCOMYCIN 750MG PREMIX 150 ML IV SCH (20:00)
[2023-04-30 20:33] LABS: POTASSIUM 3.6 mEq/L (3.5-5.1)
[2023-04-30 20:35] LABS: CALCIUM 6.2 mg/dL (8.5-10.1)
[2023-04-30 20:44] LABS: HEMOGLOBIN. 10.6 g/dL (12.0-16.0); MEAN CORPUSCULAR HEMOGLOBIN 27.8 pg (28.0-32.0); MEAN CORPUSCULAR HGB CONC 31.3 g/dL (31.0-37.0); MEAN CORPUSCULAR VOLUME 89.1 fL (81.0-99.0); MEAN PLATELET VOLUME 9.5 fl (7.4-10.4); PLATELET 82 x1000/uL (130-400); RED BLOOD CELL COUNT 3.81 mill/uL (4.2-5.4); WHITE BLOOD COUNT 21.8 x1000/uL (4.5-11.0)
[2023-04-30 21:20] LABS: LACTIC ACID 18.1 mmol/L (0.4-2.0)
[2023-04-30 21:26] LABS: DIFFERENTIAL COMMENT 1
[2023-04-30 22:08] LABS: BG BASE EXCESS -20.8 mmol/L (-2.0-2.0); BG CARBOXYHEMOGLOBIN 0.3 % (0.5-1.5); BG DEOXYHEMOGLOBIN 9.1 % (0.0-5.0); BG FRACTION INSPIRED OXYGEN 90; BG HCO3 ACT 6.6 mmol/L (22.0-26.0); BG METHEMOGLOBIN 0.3 % (0.0-1.5); BG OXYGEN SATURATION 90.8 % (92.0-98.5); BG OXYHEMOGLOBIN 90.3 % (94.0-97.0); BG PCO2 20.5 mmHg (35.0-45.0); BG PH 7.126 (7.350-7.450); BG PO2 73.7 mmHg (75.0-100.0); BG SAMPLE SITE ALINE; BG TOTAL HEMOGLOBIN 9.3 g/dL (12.0-18.0); BG VENT MODE VENT - AC
[2023-04-30 22:34] LABS: NUCLEATED RED BLOOD CELLS 38 /100 WBC
[2023-04-30 22:35] LABS: ANISOCYTOSIS 1+; HYPOCHROMASIA 1+; PLATELET ESTIMATE DECREASED
[2023-04-30 22:36] LABS: OVALOCYTES 1+
[2023-04-30 22:37] LABS: TARGET CELLS FEW
[2023-05-01] VITALS (30 sets, daily range): BP systolic 54–102; BP diastolic 24–45; PULSE 86–112; RESP 30–36; TEMP 98–98.2
[2023-05-01] MEDS ORDERED: DOPAMINE 800MG PREMIX (DOUBLE) 250 ML IV PRN
[2023-05-01] MEDS: NOREPINEPHRINE 32 MG in DEXT 5% WATER 218 ML IV PRN (00:38)
[2023-05-01] MEDS: EPINEPHRINE 10 MG in SODIUM CHLORIDE 0.9% 240 ML IV PRN ×3 (00:47→03:46)
[2023-05-01] MEDS: PHENYLEPHRINE 100 MG in DEXT 5% WATER 250 ML IV PRN (01:03)
[2023-05-01 01:46] LABS: BG BASE EXCESS -26.2 mmol/L (-2.0-2.0); BG CARBOXYHEMOGLOBIN 0.2 % (0.5-1.5); BG DEOXYHEMOGLOBIN 30.1 % (0.0-5.0); BG FRACTION INSPIRED OXYGEN 100; BG HCO3 ACT 5.7 mmol/L (22.0-26.0); BG METHEMOGLOBIN 0.6 % (0.0-1.5); BG OXYGEN SATURATION 69.7 % (92.0-98.5); BG OXYHEMOGLOBIN 69.1 % (94.0-97.0); BG PCO2 33.8 mmHg (35.0-45.0); BG PH 6.848 (7.350-7.450); BG SAMPLE SITE ALINE; BG TOTAL HEMOGLOBIN 7.5 g/dL (12.0-18.0); BG VENT MODE VENT - AC
[2023-05-01] MEDS ORDERED: SODIUM BICARBONATE 8.4% 1 MEQ/ML 50ML SYR IV NR (02:00)
== END 2023-05-01 08:25 | DRG 720 ==
LOC: ER 11:25 → MICUSO 14:11 → EDBEDREQ 14:20 → EDBEDREQTM 14:20 → EDBEDREQSVC 14:20
PROVIDERS: ADMIT Internal Medicine; ATTEND Internal Medicine
PROC: 02H633Z Insertion of Infusion Device into Right Atrium, Percutaneous Approach (ICD-10-PCS; principal; 2023-04-29)
PROC: B548ZZA Ultrasonography of Superior Vena Cava, Guidance (ICD-10-PCS; 2023-04-29)
PROC: 3E0A3GC Introduction of Other Therapeutic Substance into Bone Marrow, Percutaneous Approach (ICD-10-PCS; 2023-04-29)
PROC: 5A1935Z Respiratory Ventilation, Less than 24 Consecutive Hours (ICD-10-PCS; 2023-04-30)
PROC: 0BH17EZ Insertion of Endotracheal Airway into Trachea, Via Natural or Artificial Opening (ICD-10-PCS; 2023-04-30)
PROC: 04HY32Z Insertion of Monitoring Device into Lower Artery, Percutaneous Approach (ICD-10-PCS; 2023-04-30)
PROC: 4A133B1 Monitoring of Arterial Pressure, Peripheral, Percutaneous Approach (ICD-10-PCS; 2023-04-30)
PROC: 4A133J1 Monitoring of Arterial Pulse, Peripheral, Percutaneous Approach (ICD-10-PCS; 2023-04-30)
PROC: 5A12012 Performance of Cardiac Output, Single, Manual (ICD-10-PCS; 2023-05-01)
DX: A41.9 Sepsis, unspecified organism (principal); J96.01 Acute respiratory failure with hypoxia; N17.0 Acute kidney failure with tubular necrosis; R65.21 Severe sepsis with septic shock; G92.8 Other toxic encephalopathy; E43 Unspecified severe protein-calorie malnutrition; K56.609 Unspecified intestinal obstruction, unspecified as to partial versus complete obstruction; R18.8 Other ascites; N39.0 Urinary tract infection, site not specified; E66.9 Obesity, unspecified; E78.00 Pure hypercholesterolemia, unspecified; E87.20 Acidosis, unspecified; E87.6 Hypokalemia; I10 Essential (primary) hypertension; J45.909 Unspecified asthma, uncomplicated; L89.229 Pressure ulcer of left hip, unspecified stage; L89.219 Pressure ulcer of right hip, unspecified stage; L89.159 Pressure ulcer of sacral region, unspecified stage; I46.9 Cardiac arrest, cause unspecified; F41.9 Anxiety disorder, unspecified; E16.2 Hypoglycemia, unspecified; F32.A Depression, unspecified; R74.01 Elevation of levels of liver transaminase levels; G40.909 Epilepsy, unspecified, not intractable, without status epilepticus; T85.09XA Other mechanical complication of ventricular intracranial (communicating) shunt, initial encounter; Y83.8 Other surgical procedures as the cause of abnormal reaction of the patient, or of later complication, without mention of misadventure at the time of the procedure; Y92.89 Other specified places as the place of occurrence of the external cause; Z98.2 Presence of cerebrospinal fluid drainage device; Z86.73 Personal history of transient ischemic attack (TIA), and cerebral infarction without residual deficits; Z90.49 Acquired absence of other specified parts of digestive tract; Z74.01 Bed confinement status; Z87.440 Personal history of urinary (tract) infections; Z88.2 Allergy status to sulfonamides; Z88.5 Allergy status to narcotic agent; Z91.040 Latex allergy status; Z68.35 Body mass index [BMI] 35.0-35.9, adult; Z79.899 Other long term (current) drug therapy
CPT/HCPCS: 31500; 36415; 36600; 71045; 74176; 80048; 80053; 80202; 80305; 80320; 81003; 82375; 82805; 82962; 83605; 83880; 84145; 84484; 84703; 85025; 85379; 86850; 86900; 87070; 92950; 93005; 93970; 94002; 99291; C9113; J1265; J1720; J1953; J2185; J2370; J2405; J2543; J3370; J3480; J3490; J7030; J7050; J7060; J7070; A4315; G0480